=== PATIENT | female | born 1945 | race Caucasian/White ===

== ENCOUNTER 2020-09-13 05:45 | Inpatient (IN) | payer MEDICARE, SELFPAY ==
[2020-09-13 05:51] VITALS: BP 125/80; BP 175/91; PULSE 107; PULSE 97; RESP 16; TEMP 37.4; O2SAT 95; O2SAT 97; BMI 29.9
[2020-09-13 06:20] VITALS: O2SAT 95
--- NOTE | 2020-09-13 06:46 | XR_ITS ---
EXAMINATION: XR CHEST CLINICAL INFORMATION: SOB.] Positive COMPARISON: None TECHNIQUE: Frontal view of the chest was obtained. FINDINGS: The lungs are well-expanded with patchy opacity seen in the left lung base retrocardiac area question infiltrate versus atelectasis. Rest of lungs are clear. Heart size and pulmonary vascularity is normal. No gross bony abnormality seen. XR/XR chest 1V IMPRESSION: Patchy opacity left lung base retrocardiac area question infiltrate versus atelectasis.
--- NOTE | 2020-09-13 06:46 | ECG_ITS ---
Test Reason : SHORTNESS OF BREATH Blood Pressure : / mmHG Vent. Rate : 095 BPM Atrial Rate : 058 BPM P-R Int : 000 ms QRS Dur : 074 ms QT Int : 354 ms P-R-T Axes : 000 089 008 degrees QTc Int : 444 ms Atrial fibrillation Nonspecific T wave abnormality Abnormal ECG No previous ECGs available Referred By: James Hameed Electronically Signed By:Tyler Williamson
[2020-09-13] MEDS: 0.9 % Sodium Chloride 1,000 ML 999 ML IVCONT (06:55)
[2020-09-13] MEDS: Morphine Sulfate 4 MG/ML CARTRIDGE IVPUSH (06:55)
[2020-09-13] MEDS: ondansetron HCL 4 MG/2 ML VIAL IVPUSH (06:56)
--- NOTE | 2020-09-13 06:59 | ED_ITS ---
HPI - General Adult General Chief complaint: Upper Respiratory Symptoms Stated complaint: COVID POSITIVE SOB Time Seen by Provider: 09/13/20 06:46 Source: patient History of Present Illness HPI narrative: This is a 74 years old of female brought in by ambulance because of shortness of breath, diarrhea, upper abdominal pain. She was then use the covid positive 8 days ago she has history of COPD, she was on the hypoxic by [facility] with an O2 sat of 80 89% is usually she is not on oxygen. Onset (ago): day(s) (3) Radiation: non-radiation Severity: moderate Severity scale (1-10): 8 Relieving factors: none Exacerbating factors: none Associated symptoms: cough, fever/chills, loss of appetite and malaise Treatments prior to arrival: none Related Data Home Medications Medication Instructions Recorded Confirmed apixaban [Eliquis] 1 tab PO BID 09/13/20 09/13/20 atorvastatin 1 tab PO DAILY 09/13/20 09/13/20 ezetimibe 1 tab PO DAILY 09/13/20 09/13/20 furosemide 1 tab PO DAILY 09/13/20 09/13/20 leflunomide 1 tab PO DAILY 09/13/20 09/13/20 metoprolol succinate 1 tab PO DAILY 09/13/20 09/13/20 omeprazole 1 cap PO DAILY 09/13/20 09/13/20 sertraline 1 tab PO DAILY 09/13/20 09/13/20 Allergies Allergy/AdvReac Type Severity Reaction Status Date / Time No Known Allergies Allergy Verified 09/13/20 06:33 Review of Systems Review of Systems: Yes all other systems are reviewed and are negative Respiratory: Respiratory: Reports as per HPI and Reports no additional respiratory complaints Gastrointestinal: Gastrointestinal: Reports abdominal pain, Reports diarrhea, Reports loose stools and Reports nausea Genitourinary: Genitourinary: Reports no additional female genitourinary complaints Neurologic: Reports system reviewed and no additional complaints, except as documented PMF Past Medical History Medical History A-fib COPD (chronic obstructive pulmonary disease) HTN (hypertension) Social History Social History Alcohol intake: never Smoking Status: Never smoker Use of substances other than those prescribed or required for medical reasons: No Advance Directives: No Advance Directives Information Provided: No Physical Exam Vital Signs: Vital Signs: Last Vital Signs Temp 99.4 F 09/13/20 05:51 Pulse 85 09/13/20 12:48 Resp 16 09/13/20 12:48 BP 134/58 L 09/13/20 12:48 Pulse Ox 95 09/13/20 12:48 Body Mass Index 29.9 Const: General: cooperative and no acute distress Orientation/consciousness: oriented to person, oriented to place and oriented to time HENMT: Head: Yes normal to inspection Eyes: General: appearance normal, both eyes and all related structures Neck: Neck: Yes normal visual inspection, Yes full ROM and Yes no lymphade nopathy Chest: Chest palpation & inspection: normal inspection of the chest and normal palpation of entire chest wall Resp: Effort & Inspection: decreased respiratory effort Cardio: Rate: regular rate Rhythm: regular rhythm GI: Inspection: Yes normal to inspection Palpation (GI): Soft to palpation, nontender, no guarding and not rigid Skin: General skin exam: no rashes or lesions noted Neuro: General: oriented to person, oriented to place and oriented to time Medical Decision Making Lab Data Result diagrams: 09/13/20 07:44 09/13/20 07:44 Labs: Lab Results 09/13/20 09/13/20 09/13/20 Range/Units 07:44 07:44 07:44 WBC 6.6 (4.8-10.8) X10*3/uL RBC 4.69 (4.20-5.50) X10*6/uL Hgb 13.6 (12.0-16.0) g/dl Hct 42.5 (37-47) % MCV 90.6 (80-98) fL MCH 29.0 (27.0-33.0) pg MCHC 32.0 (31.0-35.0) g/dl RDW 14.2 (11.0-16.0) % Plt Count 144 L (160-400) X10*3/uL MPV 12.3 (9.4-12.3) fL Immature Gran % (Auto) 0.3 (0.0-0.4) % Neut % (Auto) 64.8 (45-73) % Lymph % (Auto) 20.5 (20-40) % [place] % (Auto) 13.0 H (2-11) % Eos % (Auto) 1.1 (0-4) % Baso % (Auto) 0.3 (0-2) % Lymph # (Auto) 1.3 (1.2-4.9) X10*3/uL [place] # (Auto) 0.9 (0.1-1.2) X10*3/uL Eos # (Auto) 0.1 (0.0-0.4) X10*3/uL Baso # (Auto) 0.0 (0.0-0.2) X10*3/uL Abs Immat Gran (auto) 0.02 (0.00-0.03) X10*3/uL Absolute Neuts (auto) 4.3 (2.0-8.3) X10*3/uL Absolute Nucleated RBC 0.000 (0.0-0.012) X10*3/uL Nucleated RBC % (auto) 0.0 (0.0-0.2) /100WBC PT 20.4 H (10.8-13.0) SEC INR 1.7 H (0.9-1.1) Sodium 137 (135-145) mmol/L Potassium 3.7 (3.3-5.1) mmol/l Chloride 103 (96-108) mmol/L Carbon Dioxide 27 (22-29) mmol/L Anion Gap 11 L (12-20) BUN 16 (9-16) mg/dL Creatinine 0.81 (0.5-1.4) mg/dL Estim Creat Clear Calc 68.9 Estimated GFR > 60 Random Glucose 113 (60-115) mg/dL Calcium 7.6 L (8.4-10.2) mg/dL Ferritin (10-250) ng/mL Total Bilirubin 0.7 (0.0-1.0) mg/dL AST 31 (5-31) U/L ALT 21 (0-31) U/L Alkaline Phosphatase 56 (39-117) U/L Lactate Dehydrogenase (122-220) U/L Total Protein 5.9 L (6.5-8.0) g/dL Albumin 3.6 (3.5-5.0) g/dL Lipase (8-78) U/L Procalcitonin ng/mL COVID-19 (JOSLYN) (Negative) COVID-19 Clin Com 09/13/20 09/13/20 09/13/20 Range/Units 07:44 07:44 07:44 WBC (4.8-10.8) X10*3/uL RBC (4.20-5.50) X10*6/uL Hgb (12.0-16.0) g/dl Hct (37-47) % MCV (80-98) fL MCH (27.0-33.0) pg MCHC (31.0-35.0) g/dl RDW (11.0-16.0) % Plt Count (160-400) X10*3/uL MPV (9.4-12.3) fL Immature Gran % (Auto) (0.0-0.4) % Neut % (Auto) (45-73) % Lymph % (Auto) (20-40) % [place] % (Auto) (2-11) % Eos % (Auto) (0-4) % Baso % (Auto) (0-2) % Lymph # (Auto) (1.2-4.9) X10*3/uL [place] # (Auto) (0.1-1.2) X10*3/uL Eos # (Auto) (0.0-0.4) X10*3/uL Baso # (Auto) (0.0-0.2) X10*3/uL Abs Immat Gran (auto) (0.00-0.03) X10*3/uL Absolute Neuts (auto) (2.0-8.3) X10*3/uL Absolute Nucleated RBC (0.0-0.012) X10*3/uL Nucleated RBC % (auto) (0.0-0.2) /100WBC PT (10.8-13.0) SEC INR (0.9-1.1) Sodium (135-145) mmol/L Potassium (3.3-5.1) mmol/l Chloride (96-108) mmol/L Carbon Dioxide (22-29) mmol/L Anion Gap (12-20) BUN (9-16) mg/dL Creatinine (0.5-1.4) mg/dL Estim Creat Clear Calc Estimated GFR Random Glucose (60-115) mg/dL Calcium (8.4-10.2) mg/dL Ferritin 428 H (10-250) ng/mL Total Bilirubin (0.0-1.0) mg/dL AST (5-31) U/L ALT (0-31) U/L Alkaline Phosphatase (39-117) U/L Lactate Dehydrogenase 292 H (122-220) U/L Total Protein (6.5-8.0) g/dL Albumin (3.5-5.0) g/dL Lipase 28 (8-78) U/L Procalcitonin 0.09 ng/mL COVID-19 (JOSLYN) (Negative) COVID-19 Clin Com 09/13/20 Range/Units 12:50 WBC (4.8-10.8) X10*3/uL RBC (4.20-5.50) X10*6/uL Hgb (12.0-16.0) g/dl Hct (37-47) % MCV (80-98) fL MCH (27.0-33.0) pg MCHC (31.0-35.0) g/dl RDW (11.0-16.0) % Plt Count (160-400) X10*3/uL MPV (9.4-12.3) fL Immature Gran % (Auto) (0.0-0.4) % Neut % (Auto) (45-73) % Lymph % (Auto) (20-40) % [place] % (Auto) (2-11) % Eos % (Auto) (0-4) % Baso % (Auto) (0-2) % Lymph # (Auto) (1.2-4.9) X10*3/uL [place] # (Auto) (0.1-1.2) X10*3/uL Eos # (Auto) (0.0-0.4) X10*3/uL Baso # (Auto) (0.0-0.2) X10*3/uL Abs Immat Gran (auto) (0.00-0.03) X10*3/uL Absolute Neuts (auto) (2.0-8.3) X10*3/uL Absolute Nucleated RBC (0.0-0.012) X10*3/uL Nucleated RBC % (auto) (0.0-0.2) /100WBC PT (10.8-13.0) SEC INR (0.9-1.1) Sodium (135-145) mmol/L Potassium (3.3-5.1) mmol/l Chloride (96-108) mmol/L Carbon Dioxide (22-29) mmol/L Anion Gap (12-20) BUN (9-16) mg/dL Creatinine (0.5-1.4) mg/dL Estim Creat Clear Calc Estimated GFR Random Glucose (60-115) mg/dL Calcium (8.4-10.2) mg/dL Ferritin (10-250) ng/mL Total Bilirubin (0.0-1.0) mg/dL AST (5-31) U/L ALT (0-31) U/L Alkaline Phosphatase (39-117) U/L Lactate Dehydrogenase (122-220) U/L Total Protein (6.5-8.0) g/dL Albumin (3.5-5.0) g/dL Lipase (8-78) U/L Procalcitonin ng/mL COVID-19 (JOSLYN) Positive A (Negative) COVID-19 Clin Com See Note Imaging Data Chest x-ray: Radiologist's impression: FINDINGS: The lungs are well-expanded with patchy opacity seen in the left lung base retrocardiac area question infiltrate versus atelectasis. Rest of lungs are clear. Heart size and pulmonary vascularity is normal. No gross bony abnormality seen. XR/XR chest 1V IMPRESSION: Patchy opacity left lung base retrocardiac area question infiltrate versus atelectasis. Discharge Plan Discharge Clinical Impression: Pneumonia, Hypoxia Prescriptions: No Action atorvastatin 40 mg tablet 1 tab PO DAILY RF: 0 leflunomide 20 mg tablet 1 tab PO DAILY RF: 0 omeprazole 20 mg capsule,delayed release(DR/EC) 1 cap PO DAILY RF: 0 furosemide 20 mg tablet 1 tab PO DAILY RF: 0 metoprolol succinate 25 mg tablet extended release 24 hr 1 tab PO DAILY RF: 0 sertraline 50 mg tablet 1 tab PO DAILY RF: 0 ezetimibe 10 mg tablet 1 tab PO DAILY RF: 0 Eliquis 5 mg tablet 1 tab PO BID RF: 0
[2020-09-13 07:14] VITALS: BP 142/42; PULSE 91; RESP 13
[2020-09-13 07:53] LABS: Basophils Percent Auto 0.3 % (0-2); Eosinophils Absolute Auto 0.1 X10*3/uL (0.0-0.4); Eosinophils Percent Auto 1.1 % (0-4); Hematocrit 42.5 % (37-47); Hemoglobin 13.6 g/dl (12.0-16.0); Imm Gran Abs Auto 0.02 X10*3/uL (0.00-0.03); Imm Gran Pct Auto 0.3 % (0.0-0.4); Lymphocytes Absolute Auto 1.3 X10*3/uL (1.2-4.9); Lymphocytes Percent Auto 20.5 % (20-40); Mean Corpuscular Volume 90.6 fL (80-98); Mean Platelet Volume 12.3 fL (9.4-12.3); Monocytes Absolute Auto 0.9 X10*3/uL (0.1-1.2); Neutrophils Absolute Auto 4.3 X10*3/uL (2.0-8.3); Neutrophils Percent Auto 64.8 % (45-73); Platelet Count 144 X10*3/uL (160-400); Red Blood Count 4.69 X10*6/uL (4.20-5.50); Red Cell Distribution Width 14.2 % (11.0-16.0); White Blood Count 6.6 X10*3/uL (4.8-10.8)
[2020-09-13 07:54] LABS: MANUAL DIFF FLAG NO
[2020-09-13 07:57] LABS: INTERNATIONAL NORM RATIO 1.7 (0.9-1.1); Prothrombin Time 20.4 SEC (10.8-13.0)
[2020-09-13 08:28] LABS: Alanine Aminotransferase 21 U/L (0-31); Albumin Level 3.6 g/dL (3.5-5.0); Alkaline Phosphatase 56 U/L (39-117); Anion Gap 11 (12-20); Aspartate Amino Transferase 31 U/L (5-31); Bilirubin Total 0.7 mg/dL (0.0-1.0); Blood Urea Nitrogen 16 mg/dL (9-16); Calcium 7.6 mg/dL (8.4-10.2); Carbon Dioxide 27 mmol/L (22-29); Chloride 103 mmol/L (96-108); Creatinine Clr Calc Pharmacy 68.9; Estimated Glomerular Filt Rate > 60; Glucose Random 113 mg/dL (60-115); Lipase 28 U/L (8-78); Potassium 3.7 mmol/l (3.3-5.1); Sodium 137 mmol/L (135-145); Total Protein 5.9 g/dL (6.5-8.0)
[2020-09-13] MEDS: cefTRIAXone sodium 1 GM in 0.9 % Sodium Chloride 50 ML IV (08:45)
[2020-09-13] MEDS: Doxycycline Hyclate 100 MG in 0.9 % Sodium Chloride 250 ML 166.67 MG IV (09:52)
[2020-09-13] MEDS: dexAMETHasone sod phosphate 4 MG/ML VIAL 6 MG IVPUSH (10:51)
[2020-09-13] MEDS: Acetaminophen 325 MG TABLET 650 MG PO (12:01)
[2020-09-13 12:48] VITALS: BP 134/58; PULSE 85; RESP 16; O2SAT 95
[2020-09-13 12:59] LABS: Lactate Dehydrogenase 292 U/L (122-220)
[2020-09-13 13:11] LABS: Procalcitonin 0.09 ng/mL
[2020-09-13 13:12] LABS: Ferritin 428 ng/mL (10-250)
[2020-09-13 13:20] LABS: COVID-19 Test Positive (Negative); IDNOW Serial# 9DD0AD1C
[2020-09-13] MEDS: Loperamide HCl 2 MG CAPSULE PO (15:03)
--- NOTE | 2020-09-13 18:10 | HP_ITS ---
DATE OF SERVICE: 09/13/2020 PRIMARY CARE PROVIDER: Peyman Vogt MD CHIEF COMPLAINT: Shortness of breath. HISTORY OF PRESENT ILLNESS: A 74-year-old woman presenting with complaints of worsening shortness of breath. She reports that she was diagnosed with COVID-19 on September 04. She had felt unwell with headache and diarrhea on . She had body aches, abdominal pain, and chills. Her was also diagnosed with COVID-19 and she had been quarantining. However, at 4:30 this morning, she woke up with shortness of breath. She does have a history of COPD and felt her chest tight. She decided to come to the ER to be evaluated. She denied any cough or sputum production. In the ER, all her labs are within acceptable limits. Chest x-ray showed patchy opacity to the left lung base. She had no fever initially. She was given Zofran, morphine, doxycycline, ceftriaxone in the ER. She will be admitted for further management and treatment of acute hypoxic respiratory failure secondary to COVID-19. PAST MEDICAL HISTORY: 1. TIA. 2. COPD, non-oxygen dependent. 3. Atrial fibrillation, on Eliquis. 4. Diabetes mellitus. 5. Hypertension. 6. Hyperlipidemia. PAST SURGICAL HISTORY: None. FAMILY HISTORY: Mother had pancreatic cancer. Father had coronary artery disease and CHF. SOCIAL HISTORY: Lives with her who has dementia. 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 She denies any alcohol, tobacco, or illicit drug use. ALLERGIES: NO KNOWN ALLERGIES. MEDICATIONS: 1. Apixaban 1 tab p.o. b.i.d. 2. Atorvastatin 1 tab p.o. daily. 3. Zetia 1 tab p.o. daily. 4. Furosemide 1 tab p.o. daily. 5. Leflunomide 1 tab p.o. daily. 6. Metoprolol succinate 1 tab p.o. daily. 7. Omeprazole 1 tab p.o. daily. 8. Sertraline 1 tab p.o. daily. REVIEW OF SYSTEMS: CONSTITUTIONAL: Denies any recent fever. Reports chills. No decrease in appetite. RESPIRATORY: See HPI. CARDIOVASCULAR: Denies any chest pain, orthopnea, PND, or edema. GASTROINTESTINAL: See HPI. GENITOURINARY: Denies dysuria, frequency, or hematuria. MUSCULOSKELETAL: Denies any joint pain or swelling. NEUROPSYCH: Denies any weakness or seizures. All other systems are reviewed and are negative. PHYSICAL EXAMINATION: CONSTITUTIONAL: Resting in bed, appearing in no acute distress. VITAL SIGNS: 142/42, 91, 13, 93% on 2 L. SKIN: Intact without rash or open sores. HEENT: Head is normocephalic, atraumatic. Eyes, pupils are PERRLA. Sclerae anicteric. Mouth and throat: Mucous membranes are intact and moist. NECK: Supple. No lymphadenopathy. No JVD noted. CHEST: Normal expansion. HEART: Regular rhythm. ABDOMEN: Nontender. NEUROLOGIC: Alert, oriented x3. No focal deficits noted. LABORATORY DATA: WBC 6.6, hemoglobin 13.6, hematocrit 42.5, platelets 144. Sodium is 137, potassium 3.7, chloride is 103, bicarb is 27, BUN is 16, creatinine 0.81, total bilirubin 0.7, AST is 31, ALT is 21. ASSESSMENT AND PLAN: 74-year-old woman who is being admitted with acute hypoxic respiratory failure secondary to COVID pneumonia. 1. Acute hypoxic respiratory failure secondary to COVID-19. We will treat with dexamethasone, albuterol, supplemental oxygen. ID consultation. No need for remdesivir at this time. 2. Viral pneumonia. We will treat with Rocephin and azithromycin, ID to follow. 3. History of atrial fibrillation. Stable heart rate. Continue Eliquis and metoprolol. 4. Hyperlipidemia. Continue statin. 5. Hypertension. Continue furosemide. 6. Gastroesophageal reflux disease. Continue PPI. 7. Depression. Continue sertraline. 8. Deep vein thrombosis prophylaxis with Eliquis. 9. Case discussed with Dr. Myrick. DNR at this time. 10. Full code. SURI Savage MD JR/JODY / [id number]
--- NOTE | 2020-09-13 18:51 | P.EN_ITS ---
Event Note Date of Service: 09/13/20 Event Note: Patient seen and examined. Case discussed with Jaclyn Vallecillo NP. Agree with her history and physical. In brief, 74-year-old female with COPD and AFib who reports that she went dinner with friends on August 28. She reports that 1 of the friends tested pos itive a few days later and she had symptoms so she tested on September 04 and this result came back positive. She reports feeling unwell since then but not sick enough for her to come to the hospital. She reports that yesterday she just had a severe headache, diarrhea, difficulty breathing and so she presented to the hospital. She does report that she has a pulse ox at home and normally prior to being infected with COVID she runs around 95 but over the last several days this was dropping to the high 80s. IV Decadron, no benefit of remdesivir and plasma given the timing of her course. Will empirically cover with ceftriaxone and azithromycin for postviral bacterial pneumonia. Oxygen saturation to maintain level greater than 90. Continue her Eliquis. Remainder per H&P
--- NOTE | 2020-09-13 19:46 | PC.NURSE ---
Report given to floor and patient ready for transport
[2020-09-13 20:00] VITALS: BP 155/68; PULSE 73; RESP 20; TEMP 36.6; O2SAT 95
[2020-09-13 21:05] LABS: Glucose, Whole Blood 140 mg/dL (60-115)
[2020-09-13] MEDS: Apixaban 5 MG TABLET PO (21:41)
[2020-09-13] MEDS: Melatonin 3 MG TABLET 21 MG PO (22:02)
[2020-09-14] VITALS (7 sets, daily range): BP systolic 132–164; BP diastolic 60–91; PULSE 63–81; RESP 17–18; TEMP 36.5–37.1; O2SAT 91–97
[2020-09-14] MEDS: 0.9 % Sodium Chloride Flush 3 ML SYRINGE IVFLUSH ×3 (00:13→15:47)
[2020-09-14 06:34] LABS: MANUAL DIFF FLAG NO
[2020-09-14 06:49] LABS: Basophils Percent Auto 0.2 % (0-2); Hematocrit 40.9 % (37-47); Hemoglobin 12.9 g/dl (12.0-16.0); Imm Gran Abs Auto 0.02 X10*3/uL (0.00-0.03); Imm Gran Pct Auto 0.4 % (0.0-0.4); Lymphocytes Percent Auto 37.8 % (20-40); Mean Corpuscular HGB Conc 31.5 g/dl (31.0-35.0); Mean Corpuscular Hemoglobin 28.4 pg (27.0-33.0); Mean Corpuscular Volume 90.1 fL (80-98); Mean Platelet Volume 12.9 fL (9.4-12.3); Monocytes Absolute Auto 0.9 X10*3/uL (0.1-1.2); Monocytes Percent Auto 18.2 % (2-11); Neutrophils Absolute Auto 2.2 X10*3/uL (2.0-8.3); Neutrophils Percent Auto 43.4 % (45-73); Platelet Count 174 X10*3/uL (160-400); Red Blood Count 4.54 X10*6/uL (4.20-5.50); Red Cell Distribution Width 14.2 % (11.0-16.0); White Blood Count 5.2 X10*3/uL (4.8-10.8)
[2020-09-14 07:23] LABS: Anion Gap 15 (12-20); Blood Urea Nitrogen 16 mg/dL (9-16); Calcium 8.1 mg/dL (8.4-10.2); Carbon Dioxide 25 mmol/L (22-29); Chloride 106 mmol/L (96-108); Creatinine Clr Calc Pharmacy 70.6; Estimated Glomerular Filt Rate > 60; Glucose Random 113 mg/dL (60-115); Potassium 4.8 mmol/l (3.3-5.1); Sodium 141 mmol/L (135-145)
[2020-09-14] MEDS: Ezetimibe 10 MG TABLET PO (08:28)
[2020-09-14] MEDS: Omeprazole 20 MG CAPSULE.DR PO (08:28)
[2020-09-14] MEDS: Metoprolol Succinate ER 25 MG TAB.ER.24H PO (08:28)
[2020-09-14] MEDS: Atorvastatin Calcium 40 MG TABLET PO (08:28)
[2020-09-14] MEDS: dexAMETHasone sod phosphate 4 MG/ML VIAL 6 MG IVPUSH (08:28)
[2020-09-14] MEDS: Furosemide 20 MG TABLET PO (08:29)
[2020-09-14] MEDS: Sertraline HCL 50 MG TABLET PO (08:29)
[2020-09-14] MEDS: Apixaban 5 MG TABLET PO ×2 (08:29→20:21)
[2020-09-14] MEDS: Leflunomide 10 MG TABLET 20 MG PO (08:29)
[2020-09-14] MEDS: Acetaminophen 325 MG TABLET 650 MG PO ×2 (09:37→20:25)
--- NOTE | 2020-09-14 12:09 | MHC.CM.PN ---
IMM 09/14/2020 Female 74 DX Covid+. She lives with . He has Dementia and Covid as well. Family is going to have him evaluated in ER today. She is independent with all functional mobility. DP home no services, Family will provide transportation. A HCP was documented. A copy was placed on pts chart. Copies were also provided to the patient. CM will follow to assess for a change in DC needs.
--- NOTE | 2020-09-14 15:18 | P.PNIM_ITS ---
Subjective Subjective Date of Service: 09/14/20 Interval History: Patient being followed for acute hypoxic respiratory failure, patient complaining of loose stools soon after eating, therefore nervous to eat food, patient also complaining of frontal headache otherwise denies shortness of breath, denies fever chills. Review of Systems General no dizziness no fever chills. CVS no chest pain, no palpitation. Respiratory no cough no sputum production no respiratory distress. Gastrointestinal no nausea no vomiting, no abdominal pain, complaining of diarrhea after eating Physical Exam Vital Signs: Vital Signs: Last Vital Signs Temp 98.4 F 09/14/20 12:00 Pulse 72 09/14/20 12:00 Resp 17 09/14/20 12:00 BP 138/91 H 09/14/20 12:00 Pulse Ox 92 09/14/20 12:00 Body Mass Index 29.9 Const: Other: General patient resting comfortably in no acute distress. Neck is supple no JVD. CVS regular rate rhythm, Respiratory lungs coarse breath sound at bilateral bases, dry crackles left base, no respiratory distress, no wheeze Gastrointestinal abdomen soft, nontender, bowel sounds audible, no no guarding , no rigidity. Extremities no clubbing cyanosis or edema. Neuro nonfocal Skin no rash Objective Data Current Medications Generic Name Dose Route Start Last Admin Trade Name Freq PRN Reason Stop Dose Admin Acetaminophen 650 mg 09/13/20 10:25 09/14/20 09:37 Acetaminophen 325 Mg Tablet PO 650 mg Q6H PRN Administration Pain, Mild (Pain Scale 1-3) Albuterol Sulfate 2 puff 09/13/20 10:40 Albuterol Sulfate 90 Mcg 8 Gm Inhaler INHALE RQ4H PRN Wheezing Apixaban 5 mg 09/13/20 21:00 09/14/20 08:29 Apixaban 5 Mg Tablet PO 5 mg BID TIMBO Administration Atorvastatin Calcium 40 mg 09/14/20 09:00 09/14/20 08:28 Atorvastatin Calcium 40 Mg Tablet PO 40 mg DAILY TIMBO Administration Dexamethasone Sodium Phosphate 6 mg 09/13/20 10:45 09/14/20 08:28 Dexamethasone Sod Phosphate 4 Mg/Ml Vial IVPUSH 6 mg DAILY TIMBO Administration Ezetimibe 10 mg 09/14/20 09:00 09/14/20 08:28 Ezetimibe 10 Mg Tablet PO 10 mg DAILY TIMBO Administration Furosemide 20 mg 09/14/20 09:00 09/14/20 08:29 Furosemide 20 Mg Tablet PO 20 mg DAILY TIMBO Administration Protocol Leflunomide 20 mg 09/14/20 09:00 09/14/20 08:29 Leflunomide 10 Mg Tablet PO 20 mg DAILY TIMBO Administration Metoprolol Succinate 25 mg 09/14/20 09:00 09/14/20 08:28 Metoprolol Succinate Er 25 Mg Tab.Er.24h PO 25 mg DAILY TIMBO Administration Protocol Omeprazole 20 mg 09/14/20 09:00 09/14/20 08:28 Omeprazole 20 Mg Capsule. PO 20 mg DAILY TIMBO Administration Ondansetron HCl 4 mg 09/13/20 10:25 Ondansetron Hcl 4 Mg/2 Ml Vial IVPUSH Q8H PRN Nausea and Vomiting Sertraline HCl 50 mg 09/14/20 09:00 09/14/20 08:29 Sertraline Hcl 50 Mg Tablet PO 50 mg DAILY TIMBO Administration Sodium Chloride 3 ml 09/13/20 16:00 09/14/20 08:28 0.9 % Sodium Chloride Flush 3 Ml Syringe IVFLUSH 3 ml QSHIFT TIMBO Administration Labs CBC & Chem 7: 09/14/20 05:43 09/14/20 05:43 Microbiology Microbiology Results: Microbiology 09/13/20 09:56 Blood - Venous Blood Culture - Preliminary No growth after 24 hours. 09/13/20 09:17 Blood - Venous Blood Culture - Preliminary No growth after 24 hours. Assessment and Plan (1) COVID-19 virus infection: Status: Acute (2) Pneumonia: Status: Acute (3) Hypoxia: Status: Acute Assessment and Plan: 74-year-old woman who is being admitted with acute hypoxic respiratory failure secondary to COVID pneumonia. 1. Acute hypoxic respiratory failure secondary to COVID-19 with possible bacteri a pneumonia. Patient denies shortness of breath no acute issues overnight clinically stable is still on 3 L of nasal cannula with finger oximetry 92%, continue iv dexamethasone day 2, continue albuterol, continue doxy Add incentive spirometry, recommended frequent change in position and proning, g radually wean oxygen Reassured patient that headache and diarrhea as part of COVID-19 infection. LDH 292 procalcitonin point overnight, ferritin 428, stable electrolytes and CBC. 3. History of atrial fibrillation. Stable heart rate. Continue Eliquis and metoprolol. 4. Hyperlipidemia. Continue statin. 5. Hypertension. Continue furosemide. 6. Gastroesophageal reflux disease. Continue PPI. 7. Depression. Continue sertraline. 8. Deep vein thrombosis prophylaxis with Eliquis. 9. Full code.
--- NOTE | 2020-09-14 15:35 | P.CNID_ITS ---
History of Present Illness Data of Consult Service Date: 09/14/20 Primary Care Provider: Peyman Vogt MD [facility] Reason for consult: COVID She presents to hospital with shortness of breath and fatigue She has been ill since 09/02 when she had weakness and fever She and her both tested positive for COVID They were playing cards with another couple 5 days before who had COVID Review of Systems Review of Systems: Yes all other systems are reviewed and are negative Neurologic: Reports system reviewed and no additional complaints, except as documented PMFSH Past Medical History Medical History A-fib COPD (chronic obstructive pulmonary disease) HTN (hypertension) Social History Social History Household Members: Spouse Housing: House Do you presently have visiting nurse or other home services: No Alcohol intake: never Smoking Status: Former smoker Smoked in Last 30 Days: No Use of substances other than those prescribed or required for medical reasons: No Currently Displaying Signs/Symptoms of Drug Intoxication Withdrawal: No Have you been hit, kicked, punched, or otherwise hurt by someone within the past year? If so, by whom?: No Do you feel safe in your current relationship?: Yes Is there a partner from a previous relationship who is making you feel unsafe now?: No Are you made to feel afraid or neglected: No Advance Directives: No Advance Directives Information Provided: No Do you have thoughts of harming others: None Do you have a plan to hurt others: No Plan Recently lost weight without trying: No service: No Current occupational status: retired [employer] Allergies Allergy/AdvReac Type Severity Reaction Status Date / Time No Known Allergies Allergy Verified 09/13/20 06:33 Home Medications Medication Instructions Recorded Confirmed Type apixaban [Eliquis] 1 tab PO BID 09/13/20 09/13/20 History atorvastatin 1 tab PO DAILY 09/13/20 09/13/20 History ezetimibe 1 tab PO DAILY 09/13/20 09/13/20 History furosemide 1 tab PO DAILY 09/13/20 09/13/20 History leflunomide 1 tab PO DAILY 09/13/20 09/13/20 History metoprolol succinate 1 tab PO DAILY 09/13/20 09/13/20 History omeprazole 1 cap PO DAILY 09/13/20 09/13/20 History sertraline 1 tab PO DAILY 09/13/20 09/13/20 History Physical Exam Vital Signs: Vital Signs: Last Vital Signs Temp 98.4 F 09/14/20 12:00 Pulse 72 09/14/20 12:00 Resp 17 09/14/20 12:00 BP 138/91 H 09/14/20 12:00 Pulse Ox 92 09/14/20 12:00 Body Mass Index 29.9 Const: General: cooperative Orientation/consciousness: oriented to person, oriented to place and oriented to time HENMT: Head: Yes normal to inspection Mouth: oropharynx normal Eyes: General: appearance normal, both eyes and all related structures Resp: Effort & Inspection: normal respiratory effort Cardio: Rate: regular rate Rhythm: regular rhythm GI: Palpation (GI): Soft to palpation and nontender Skin: General skin exam: no rashes or lesions noted Neuro: General: oriented to person, oriented to place and oriented to time Extrem: General: Yes normal to inspection Assessment and Plan (1) COVID-19 virus infection: Problem details: COVID, she has been ill 11 days She has no signs of bacterial infection probably hypoxia due to COVID Status: Acute Would give supportive care with oxygen Can give steroids No Remdesivir at this stage (2) Pneumonia: Status: Acute Results Labs CBC & Chem 7: 09/14/20 05:43 09/14/20 05:43 Labs: Short CBC 09/14/20 Range/Units 05:43 WBC 5.2 (4.8-10.8) X10*3/uL Hgb 12.9 (12.0-16.0) g/dl Hct 40.9 (37-47) % Plt Count 174 (160-400) X10*3/uL BMP 09/14/20 05:43 Sodium 141 Potassium 4.8 D Chloride 106 Carbon Dioxide 25 BUN 16 Creatinine 0.79 Calcium 8.1 L D Microbiology Microbiology Results: Microbiology 09/13/20 09:56 Blood - Venous Blood Culture - Preliminary No growth after 24 hours. 09/13/20 09:17 Blood - Venous Blood Culture - Preliminary No growth after 24 hours.
[2020-09-14 16:04] LABS: Glucose, Whole Blood 146 mg/dL (60-115)
[2020-09-14] MEDS: Melatonin 3 MG TABLET 21 MG PO (21:04)
[2020-09-15] VITALS (7 sets, daily range): BP systolic 128–153; BP diastolic 61–76; PULSE 69–88; RESP 18–20; TEMP 36.8–37.2; O2SAT 90–98
[2020-09-15] MEDS: 0.9 % Sodium Chloride Flush 3 ML SYRINGE IVFLUSH ×3 (00:10→17:41)
[2020-09-15] MEDS: Metoprolol Succinate ER 25 MG TAB.ER.24H PO (08:51)
[2020-09-15] MEDS: Furosemide 20 MG TABLET PO (08:51)
[2020-09-15] MEDS: Omeprazole 20 MG CAPSULE.DR PO (08:51)
[2020-09-15] MEDS: Leflunomide 10 MG TABLET 20 MG PO (08:51)
[2020-09-15] MEDS: Apixaban 5 MG TABLET PO ×2 (08:52→21:40)
[2020-09-15] MEDS: Sertraline HCL 50 MG TABLET PO (08:52)
[2020-09-15] MEDS: dexAMETHasone sod phosphate 4 MG/ML VIAL 6 MG IVPUSH (08:52)
[2020-09-15] MEDS: Atorvastatin Calcium 40 MG TABLET PO (08:52)
[2020-09-15] MEDS: Ezetimibe 10 MG TABLET PO (08:54)
[2020-09-15] MEDS: Acetaminophen 325 MG TABLET 650 MG PO ×2 (10:26→21:47)
[2020-09-15] MEDS: oxyCODONE HCl Immed Release 5 MG TABLET PO ×2 (10:27→21:46)
--- NOTE | 2020-09-15 14:26 | MHC.CM.PN ---
Patient is on IV Dexamethasone and 5 liters O2 r/t COVID +. BC negative x 24 hrs. Discharge plan is home no services, family will provide transport. CM will continue to follow for discharge needs.
--- NOTE | 2020-09-15 18:00 | HO.PM.IMPN ---
Subjective Subjective Date of Service: 09/15/20 Interval History: c/o frontal SANTANA dyspnea improved, O2 weaned down to 1L via NC diarrhea improving, stools more formed Physical Exam Vital Signs: Vital Signs: Last Vital Signs Temp 98.5 F 09/15/20 15:36 Pulse 88 09/15/20 15:36 Resp 18 09/15/20 15:36 BP 128/61 09/15/20 15:36 Pulse Ox 90 L 09/15/20 15:36 Body Mass Index 29.9 Gen: in no acute distress HEENT: sclera anicteric, moist mucus membranes Neck: supple Lungs: no respiratory distress, auscultation deferred due to COVID-19 Heart: normal peripheral pulses Abd: soft, non-tender, non-distended Ext: no cyanosis, clubbing, or edema Skin: warm/well-perfused Neuro: alert and oriented x3, no focal findings Psych: appropriate affect Objective Data Current Medications Generic Name Dose Route Start Last Admin Trade Name Freq PRN Reason Stop Dose Admin Acetaminophen 650 mg 09/13/20 10:25 09/15/20 10:26 Acetaminophen 325 Mg Tablet PO 650 mg Q6H PRN Administration Pain, Mild (Pain Scale 1-3) Albuterol Sulfate 2 puff 09/13/20 10:40 Albuterol Sulfate 90 Mcg 8 Gm Inhaler INHALE RQ4H PRN Wheezing Apixaban 5 mg 09/13/20 21:00 09/15/20 08:52 Apixaban 5 Mg Tablet PO 5 mg BID TIMBO Administration Atorvastatin Calcium 40 mg 09/14/20 09:00 09/15/20 08:52 Atorvastatin Calcium 40 Mg Tablet PO 40 mg DAILY TIMBO Administration Dexamethasone Sodium Phosphate 6 mg 09/13/20 10:45 09/15/20 08:52 Dexamethasone Sod Phosphate 4 Mg/Ml Vial IVPUSH 6 mg DAILY TIMBO Administration Doxycycline Hyclate 100 mg 09/14/20 18:00 09/15/20 17:41 Doxycycline Hyclate 100 Mg Tablet PO 100 mg Q12H TIMBO Administration Ezetimibe 10 mg 09/14/20 09:00 09/15/20 08:54 Ezetimibe 10 Mg Tablet PO 10 mg DAILY TIMBO Administration Furosemide 20 mg 09/14/20 09:00 09/15/20 08:51 Furosemide 20 Mg Tablet PO 20 mg DAILY TIMBO Administration Protocol Leflunomide 20 mg 09/14/20 09:00 09/15/20 08:51 Leflunomide 10 Mg Tablet PO 20 mg DAILY TIMBO Administration Melatonin 21 mg 09/14/20 21:00 09/14/20 21:04 Melatonin 3 Mg Tablet PO 21 mg BEDTIME TIMBO Administration Metoprolol Succinate 25 mg 09/14/20 09:00 09/15/20 08:51 Metoprolol Succinate Er 25 Mg Tab.Er.24h PO 25 mg DAILY TIMBO Administration Protocol Omeprazole 20 mg 09/14/20 09:00 09/15/20 08:51 Omeprazole 20 Mg Capsule.Dr PO 20 mg DAILY TIMBO Administration Ondansetron HCl 4 mg 09/13/20 10:25 Ondansetron Hcl 4 Mg/2 Ml Vial IVPUSH Q8H PRN Nausea and Vomiting Oxycodone HCl 5 mg 09/15/20 10:14 09/15/20 10:27 Oxycodone Hcl Immed Release 5 Mg Tablet PO 5 mg Q6H PRN Administration Headache Sertraline HCl 50 mg 09/14/20 09:00 09/15/20 08:52 Sertraline Hcl 50 Mg Tablet PO 50 mg DAILY TIMBO Administration Sodium Chloride 3 ml 09/13/20 16:00 09/15/20 17:41 0.9 % Sodium Chloride Flush 3 Ml Syringe IVFLUSH 3 ml QSHIFT TIMBO Administration Labs CBC & Chem 7: 09/14/20 05:43 09/14/20 05:43 Microbiology Microbiology Results: Microbiology 09/13/20 09:56 Blood - Venous Blood Culture - Preliminary No growth after 48 hours. 09/13/20 09:17 Blood - Venous Blood Culture - Preliminary No growth after 48 hours. Assessment and Plan (1) COVID-19 virus infection: Status: Acute (2) Pneumonia: Status: Acute (3) Hypoxia: Status: Acute Assessment and Plan: hospital d#3 74yo with AF, HTN, RA diagnosed with COVID-19 infection 09/04/20, onset of symptoms 09/03/20 admitted for hypoxia # COVID-19 pneumonia - dexamethasone d#3/10 - question of bacterial pneumonia- on doxycycline d#3 but will d/c if PCT is low tomorrow - trend inflammatory markers # acute hypoxic respiratory failure - wean O2 as tolerated, encouraged awake proning # AF - continue apixaban, metoprolol # HTN - continue metoprolol, furosemide # HLD - continue statin + ezetimibe # RA - continue lefluonmide # GERD - continue PPI # depression - continue sertraline # VTE ppx - on apixaban
[2020-09-15] MEDS: Melatonin 3 MG TABLET 21 MG PO (21:40)
[2020-09-16] VITALS (7 sets, daily range): BP systolic 127–159; BP diastolic 64–80; PULSE 62–71; RESP 16–18; TEMP 36.1–36.8; O2SAT 90–98
[2020-09-16] MEDS: 0.9 % Sodium Chloride Flush 3 ML SYRINGE IVFLUSH ×3 (01:51→17:19)
[2020-09-16 06:44] LABS: MANUAL DIFF FLAG NO
[2020-09-16 06:55] LABS: Basophils Percent Auto 0.2 % (0-2); Eosinophils Percent Auto 0.1 % (0-4); Hematocrit 40.4 % (37-47); Imm Gran Abs Auto 0.05 X10*3/uL (0.00-0.03); Imm Gran Pct Auto 0.6 % (0.0-0.4); Lymphocytes Absolute Auto 2.3 X10*3/uL (1.2-4.9); Lymphocytes Percent Auto 25.6 % (20-40); Mean Corpuscular HGB Conc 32.2 g/dl (31.0-35.0); Mean Corpuscular Volume 90.2 fL (80-98); Mean Platelet Volume 12.8 fL (9.4-12.3); Monocytes Absolute Auto 1.2 X10*3/uL (0.1-1.2); Neutrophils Absolute Auto 5.5 X10*3/uL (2.0-8.3); Neutrophils Percent Auto 60.5 % (45-73); Platelet Count 196 X10*3/uL (160-400); Red Blood Count 4.48 X10*6/uL (4.20-5.50); Red Cell Distribution Width 14.3 % (11.0-16.0)
[2020-09-16 07:01] LABS: D Dimer 261 NG/ML
[2020-09-16 07:40] LABS: Alanine Aminotransferase 21 U/L (0-31); Albumin Level 3.3 g/dL (3.5-5.0); Alkaline Phosphatase 51 U/L (39-117); Anion Gap 15 (12-20); Aspartate Amino Transferase 25 U/L (5-31); Bilirubin Total 0.7 mg/dL (0.0-1.0); Blood Urea Nitrogen 24 mg/dL (9-16); C Reactive Protein 1.16 mg/dL (< or = 0.50); Calcium 8.4 mg/dL (8.4-10.2); Carbon Dioxide 27 mmol/L (22-29); Chloride 106 mmol/L (96-108); Creatinine Clr Calc Pharmacy 70.6; Estimated Glomerular Filt Rate > 60; Glucose Random 103 mg/dL (60-115); Lactate Dehydrogenase 311 U/L (122-220); Potassium 4.7 mmol/l (3.3-5.1); Sodium 143 mmol/L (135-145); Total Protein 5.8 g/dL (6.5-8.0)
[2020-09-16 09:10] LABS: Procalcitonin 0.03 ng/mL
[2020-09-16] MEDS: Omeprazole 20 MG CAPSULE.DR PO (09:15)
[2020-09-16] MEDS: Sertraline HCL 50 MG TABLET PO (09:15)
[2020-09-16] MEDS: Leflunomide 10 MG TABLET 20 MG PO (09:15)
[2020-09-16] MEDS: Ezetimibe 10 MG TABLET PO (09:16)
[2020-09-16] MEDS: dexAMETHasone sod phosphate 4 MG/ML VIAL 6 MG IVPUSH (09:16)
[2020-09-16] MEDS: Metoprolol Succinate ER 25 MG TAB.ER.24H PO (09:16)
[2020-09-16] MEDS: Atorvastatin Calcium 40 MG TABLET PO (09:16)
[2020-09-16] MEDS: Furosemide 20 MG TABLET PO (09:16)
[2020-09-16] MEDS: Apixaban 5 MG TABLET PO ×2 (09:16→22:24)
[2020-09-16 09:19] LABS: Ferritin 424 ng/mL (10-250)
[2020-09-16] MEDS: oxyCODONE HCl Immed Release 5 MG TABLET PO ×2 (09:35→17:25)
[2020-09-16] MEDS: Acetaminophen 325 MG TABLET 650 MG PO ×2 (09:35→17:17)
--- NOTE | 2020-09-16 13:34 | HO.PM.IMPN ---
Subjective Subjective Date of Service: 09/16/20 Interval History: SANTANA improved Still requiring 1-2L O2 via NC Very tired No chest pain Physical Exam Vital Signs: Vital Signs: Last Vital Signs Temp 98.3 F 09/16/20 10:59 Pulse 70 09/16/20 10:59 Resp 18 09/16/20 10:59 BP 147/71 H 09/16/20 10:59 Pulse Ox 94 09/16/20 10:59 Body Mass Index 29.9 Gen: in no acute distress HEENT: sclera anicteric, moist mucus membranes Neck: supple Lungs: no respiratory distress, auscultation deferred due to COVID-19 Heart: normal peripheral pulses Abd: soft, non-tender, non-distended Ext: no cyanosis, clubbing, or edema Skin: warm/well-perfused Neuro: alert and oriented x3, no focal findings Psych: appropriate affect Objective Data Current Medications Generic Name Dose Route Start Last Admin Trade Name Freq PRN Reason Stop Dose Admin Acetaminophen 650 mg 09/13/20 10:25 09/16/20 09:35 Acetaminophen 325 Mg Tablet PO 650 mg Q6H PRN Administration Pain, Mild (Pain Scale 1-3) Albuterol Sulfate 2 puff 09/13/20 10:40 Albuterol Sulfate 90 Mcg 8 Gm Inhaler INHALE RQ4H PRN Wheezing Apixaban 5 mg 09/13/20 21:00 09/16/20 09:16 Apixaban 5 Mg Tablet PO 5 mg BID TIMBO Administration Atorvastatin Calcium 40 mg 09/14/20 09:00 09/16/20 09:16 Atorvastatin Calcium 40 Mg Tablet PO 40 mg DAILY TIMBO Administration Dexamethasone Sodium Phosphate 6 mg 09/13/20 10:45 09/16/20 09:16 Dexamethasone Sod Phosphate 4 Mg/Ml Vial IVPUSH 6 mg DAILY TIMBO Administration Ezetimibe 10 mg 09/14/20 09:00 09/16/20 09:16 Ezetimibe 10 Mg Tablet PO 10 mg DAILY TIMBO Administration Furosemide 20 mg 09/14/20 09:00 09/16/20 09:16 Furosemide 20 Mg Tablet PO 20 mg DAILY TIMBO Administration Protocol Leflunomide 20 mg 09/14/20 09:00 09/16/20 09:15 Leflunomide 10 Mg Tablet PO 20 mg DAILY TIMBO Administration Melatonin 21 mg 09/14/20 21:00 09/15/20 21:40 Melatonin 3 Mg Tablet PO 21 mg BEDTIME TIMBO Administration Metoprolol Succinate 25 mg 09/14/20 09:00 09/16/20 09:16 Metoprolol Succinate Er 25 Mg Tab.Er.24h PO 25 mg DAILY TIMBO Administration Protocol Omeprazole 20 mg 09/14/20 09:00 09/16/20 09:15 Omeprazole 20 Mg Capsule.Dr PO 20 mg DAILY TIMBO Administration Ondansetron HCl 4 mg 09/13/20 10:25 Ondansetron Hcl 4 Mg/2 Ml Vial IVPUSH Q8H PRN Nausea and Vomiting Oxycodone HCl 5 mg 09/15/20 10:14 09/16/20 09:35 Oxycodone Hcl Immed Release 5 Mg Tablet PO 5 mg Q6H PRN Administration Headache Sertraline HCl 50 mg 09/14/20 09:00 09/16/20 09:15 Sertraline Hcl 50 Mg Tablet PO 50 mg DAILY TIMBO Administration Sodium Chloride 3 ml 09/13/20 16:00 09/16/20 09:15 0.9 % Sodium Chloride Flush 3 Ml Syringe IVFLUSH 3 ml QSHIFT TIMBO Administration Labs CBC & Chem 7: 09/16/20 05:34 09/16/20 05:34 Labs: Laboratory Results - last 24 hr 09/16/20 09/16/20 09/16/20 05:34 05:34 05:34 WBC 9.0 RBC 4.48 Hgb 13.0 Hct 40.4 MCV 90.2 MCH 29.0 MCHC 32.2 RDW 14.3 Plt Count 196 MPV 12.8 H Immature Gran % (Auto) 0.6 H Neut % (Auto) 60.5 Lymph % (Auto) 25.6 [place] % (Auto) 13.0 H Eos % (Auto) 0.1 Baso % (Auto) 0.2 Lymph # (Auto) 2.3 [place] # (Auto) 1.2 Eos # (Auto) 0.0 Baso # (Auto) 0.0 Abs Immat Gran (auto) 0.05 H Absolute Neuts (auto) 5.5 Absolute Nucleated RBC 0.000 Nucleated RBC % (auto) 0.0 D-Dimer 261 Sodium 143 Potassium 4.7 Chloride 106 Carbon Dioxide 27 Anion Gap 15 BUN 24 H Creatinine 0.79 Estim Creat Clear Calc 70.6 Estimated GFR > 60 Random Glucose 103 Calcium 8.4 Ferritin 424 H Total Bilirubin 0.7 AST 25 ALT 21 Alkaline Phosphatase 51 Lactate Dehydrogenase 311 H C-Reactive Protein 1.16 H Total Protein 5.8 L Albumin 3.3 L Procalcitonin 09/16/20 05:34 WBC RBC Hgb Hct MCV MCH MCHC RDW Plt Count MPV Immature Gran % (Auto) Neut % (Auto) Lymph % (Auto) [place] % (Auto) Eos % (Auto) Baso % (Auto) Lymph # (Auto) [place] # (Auto) Eos # (Auto) Baso # (Auto) Abs Immat Gran (auto) Absolute Neuts (auto) Absolute Nucleated RBC Nucleated RBC % (auto) D-Dimer Sodium Potassium Chloride Carbon Dioxide Anion Gap BUN Creatinine Estim Creat Clear Calc Estimated GFR Random Glucose Calcium Ferritin Total Bilirubin AST ALT Alkaline Phosphatase Lactate Dehydrogenase C-Reactive Protein Total Protein Albumin Procalcitonin 0.03 Microbiology Microbiology Results: Microbiology 09/13/20 09:56 Blood - Venous Blood Culture - Preliminary No growth after 48 hours. 09/13/20 09:17 Blood - Venous Blood Culture - Preliminary No growth after 48 hours. Assessment and Plan (1) COVID-19 virus infection: Status: Acute (2) Pneumonia: Status: Acute (3) Hypoxia: Status: Acute Assessment and Plan: hospital d#4 74yo with AF, HTN, RA diagnosed with COVID-19 infection 09/04/20, onset of symptoms 09/03/20 admitted for hypoxia # COVID-19 pneumonia - dexamethasone d#12/18 - d/c doxycycline; no evidence of bacterial infection # acute hypoxic respiratory failure - wean O2 as tolerated, encouraged awake proning # AF - continue apixaban, metoprolol # HTN - continue metoprolol, furosemide # HLD - continue statin + ezetimibe # RA - continue lefluonmide # GERD - continue PPI # depression - continue sertraline # VTE ppx - on apixaban
[2020-09-16] MEDS: Melatonin 3 MG TABLET 21 MG PO (22:24)
[2020-09-17] MEDS: 0.9 % Sodium Chloride Flush 3 ML SYRINGE IVFLUSH ×4 (00:26→21:06)
[2020-09-17] MEDS: Acetaminophen 325 MG TABLET 650 MG PO ×3 (00:32→16:31)
[2020-09-17] MEDS: oxyCODONE HCl Immed Release 5 MG TABLET PO ×3 (00:36→16:28)
[2020-09-17 03:22] VITALS: BP 148/83; PULSE 72; RESP 18; TEMP 36.1; O2SAT 94
[2020-09-17 08:00] VITALS: BP 128/74; PULSE 92; RESP 18; TEMP 36.7; O2SAT 96
[2020-09-17] MEDS: Leflunomide 10 MG TABLET 20 MG PO (10:49)
[2020-09-17] MEDS: Apixaban 5 MG TABLET PO ×2 (10:49→21:06)
[2020-09-17] MEDS: dexAMETHasone sod phosphate 4 MG/ML VIAL 6 MG IVPUSH (10:49)
[2020-09-17] MEDS: Ezetimibe 10 MG TABLET PO (10:49)
[2020-09-17] MEDS: Sertraline HCL 50 MG TABLET PO (10:49)
[2020-09-17] MEDS: Metoprolol Succinate ER 25 MG TAB.ER.24H PO (10:50)
[2020-09-17] MEDS: Atorvastatin Calcium 40 MG TABLET PO (10:50)
[2020-09-17] MEDS: Furosemide 20 MG TABLET PO (10:50)
[2020-09-17] MEDS: Omeprazole 20 MG CAPSULE.DR PO (10:50)
[2020-09-17 12:00] VITALS: BP 132/64; PULSE 91; RESP 18; TEMP 36.4; O2SAT 92
--- NOTE | 2020-09-17 12:31 | HO.PM.IMPN ---
Subjective Subjective Date of Service: 09/17/20 Interval History: frontal SANTANA relieved by oxycodone dyspnea improved still on 2L NC Physical Exam Vital Signs: Vital Signs: Last Vital Signs Temp 98.1 F 09/17/20 08:00 Pulse 92 09/17/20 08:00 Resp 18 09/17/20 08:00 BP 128/74 09/17/20 08:00 Pulse Ox 96 09/17/20 08:00 Body Mass Index 29.9 Gen: in no acute distress HEENT: sclera anicteric, moist mucus membranes Neck: supple Lungs: no respiratory distress, auscultation deferred due to COVID-19 Heart: normal peripheral pulses Abd: soft, non-tender, non-distended Ext: no cyanosis, clubbing, or edema Skin: warm/well-perfused Neuro: alert and oriented x3, no focal findings Psych: appropriate affect Objective Data Current Medications Generic Name Dose Route Start Last Admin Trade Name Freq PRN Reason Stop Dose Admin Acetaminophen 650 mg 09/13/20 10:25 09/17/20 10:51 Acetaminophen 325 Mg Tablet PO 650 mg Q6H PRN Administration Pain, Mild (Pain Scale 1-3) Albuterol Sulfate 2 puff 09/13/20 10:40 Albuterol Sulfate 90 Mcg 8 Gm Inhaler INHALE RQ4H PRN Wheezing Apixaban 5 mg 09/13/20 21:00 09/17/20 10:49 Apixaban 5 Mg Tablet PO 5 mg BID TIMBO Administration Atorvastatin Calcium 40 mg 09/14/20 09:00 09/17/20 10:50 Atorvastatin Calcium 40 Mg Tablet PO 40 mg DAILY TIMBO Administration Dexamethasone Sodium Phosphate 6 mg 09/13/20 10:45 09/17/20 10:49 Dexamethasone Sod Phosphate 4 Mg/Ml Vial IVPUSH 6 mg DAILY TIMBO Administration Ezetimibe 10 mg 09/14/20 09:00 09/17/20 10:49 Ezetimibe 10 Mg Tablet PO 10 mg DAILY TIMBO Administration Furosemide 20 mg 09/14/20 09:00 09/17/20 10:50 Furosemide 20 Mg Tablet PO 20 mg DAILY TIMBO Administration Protocol Leflunomide 20 mg 09/14/20 09:00 09/17/20 10:49 Leflunomide 10 Mg Tablet PO 20 mg DAILY TIMBO Administration Melatonin 21 mg 09/14/20 21:00 09/16/20 22:24 Melatonin 3 Mg Tablet PO 21 mg BEDTIME TIMBO Administration Metoprolol Succinate 25 mg 09/14/20 09:00 09/17/20 10:50 Metoprolol Succinate Er 25 Mg Tab.Er.24h PO 25 mg DAILY TIMBO Administration Protocol Omeprazole 20 mg 09/14/20 09:00 09/17/20 10:50 Omeprazole 20 Mg Capsule.Dr PO 20 mg DAILY TIMBO Administration Ondansetron HCl 4 mg 09/13/20 10:25 Ondansetron Hcl 4 Mg/2 Ml Vial IVPUSH Q8H PRN Nausea and Vomiting Oxycodone HCl 5 mg 09/16/20 13:36 09/17/20 10:56 Oxycodone Hcl Immed Release 5 Mg Tablet PO 5 mg Q4H PRN Administration Headache Sertraline HCl 50 mg 09/14/20 09:00 09/17/20 10:49 Sertraline Hcl 50 Mg Tablet PO 50 mg DAILY TIMBO Administration Sodium Chloride 3 ml 09/13/20 16:00 09/17/20 10:51 0.9 % Sodium Chloride Flush 3 Ml Syringe IVFLUSH 3 ml QSHIFT TIMBO Administration Labs CBC & Chem 7: 09/16/20 05:34 09/16/20 05:34 Microbiology Microbiology Results: Microbiology 09/13/20 09:56 Blood - Venous Blood Culture - Preliminary No growth after 48 hours. 09/13/20 09:17 Blood - Venous Blood Culture - Preliminary No growth after 48 hours. Assessment and Plan (1) COVID-19 virus infection: Status: Acute (2) Pneumonia: Status: Acute (3) Hypoxia: Status: Acute Assessment and Plan: hospital d#5 74yo with AF, HTN, RA diagnosed with COVID-19 infection 09/04/20, onset of symptoms 09/03/20 admitted for hypoxia # COVID-19 pneumonia - dexamethasone d#01/17 - d/c'ed doxycycline; no evidence of bacterial infection # acute hypoxic respiratory failure - wean O2 as tolerated, encouraged awake proning # AF - continue apixaban, metoprolol # HTN - continue metoprolol, furosemide # HLD - continue statin + ezetimibe # RA - continue lefluonmide # GERD - continue PPI # depression - continue sertraline # VTE ppx - on apixaban # dispo - home with VNA when hypoxia resolves
--- NOTE | 2020-09-17 13:05 | MHC.CM.PN ---
Patient is COVID + and continues to need 2 liters O2. Discharge plan is home no services. CM will continue to follow patient for discharge needs.
[2020-09-17 14:19] VITALS: PULSE 68; PULSE 74; PULSE 77; O2SAT 87; O2SAT 90; O2SAT 93
[2020-09-17 15:46] VITALS: BP 137/74; PULSE 69; RESP 18; TEMP 37.2; O2SAT 93
[2020-09-17 19:25] VITALS: BP 152/75; PULSE 63; RESP 18; TEMP 36.5; O2SAT 93
[2020-09-17] MEDS: Melatonin 3 MG TABLET 21 MG PO (21:06)
[2020-09-18] VITALS (7 sets, daily range): BP systolic 117–146; BP diastolic 66–84; PULSE 62–89; RESP 18–20; TEMP 36.2–37.2; O2SAT 92–100
[2020-09-18 06:56] LABS: Hemoglobin 13.9 g/dl (12.0-16.0); Mean Corpuscular HGB Conc 32.3 g/dl (31.0-35.0); Mean Corpuscular Hemoglobin 28.5 pg (27.0-33.0); Mean Corpuscular Volume 88.1 fL (80-98); Mean Platelet Volume 12.6 fL (9.4-12.3); Platelet Count 250 X10*3/uL (160-400); Red Blood Count 4.88 X10*6/uL (4.20-5.50); Red Cell Distribution Width 13.9 % (11.0-16.0); White Blood Count 10.2 X10*3/uL (4.8-10.8)
[2020-09-18 07:17] LABS: Alanine Aminotransferase 23 U/L (0-31); Albumin Level 3.5 g/dL (3.5-5.0); Alkaline Phosphatase 63 U/L (39-117); Anion Gap 13 (12-20); Aspartate Amino Transferase 24 U/L (5-31); Bilirubin Total 0.6 mg/dL (0.0-1.0); Blood Urea Nitrogen 28 mg/dL (9-16); C Reactive Protein 0.45 mg/dL (< or = 0.50); Calcium 8.4 mg/dL (8.4-10.2); Carbon Dioxide 30 mmol/L (22-29); Chloride 101 mmol/L (96-108); Creatinine Clr Calc Pharmacy 72.4; Estimated Glomerular Filt Rate > 60; Glucose Random 116 mg/dL (60-115); Potassium 4.9 mmol/l (3.3-5.1); Sodium 139 mmol/L (135-145); Total Protein 6.1 g/dL (6.5-8.0)
[2020-09-18 07:21] LABS: D Dimer 377 NG/ML
[2020-09-18 07:26] LABS: Lactate Dehydrogenase 316 U/L (122-220)
[2020-09-18 07:36] LABS: Ferritin 417 ng/mL (10-250)
[2020-09-18 08:09] LABS: Procalcitonin 0.02 ng/mL
[2020-09-18 09:45] LABS: Atypical Lymph Absolute Manual 0.7 x10*3/uL; Atypical Lymphs Percent Manual 7 % (0-6); Band Neutrophils Percent 0 % (3-5); Lymphocytes Absolute Manual 2.2 X10*3/uL (0.6-4.8); Lymphocytes Percent Manual 22 % (20-40); Monocytes Absolute Manual 1.3 X10*3/uL (0.0-1.2); Monocytes Percent Manual 13 % (2-11); Neutrophils Absolute Manual 5.9 X10*3/uL (2.2-7.9); Neutrophils Percent Manual 58 % (45-73); Ovalocytes 1+; RBC Morphology NOTED
[2020-09-18 09:46] LABS: Large Platelet PRESENT; Platelet Estimate NORMAL (NORMAL); Platelet Morphology Comment NORMAL
[2020-09-18] MEDS: 0.9 % Sodium Chloride Flush 3 ML SYRINGE IVFLUSH ×3 (10:02→20:07)
[2020-09-18] MEDS: dexAMETHasone sod phosphate 4 MG/ML VIAL 6 MG IVPUSH (10:02)
[2020-09-18] MEDS: Sertraline HCL 50 MG TABLET PO (10:03)
[2020-09-18] MEDS: Metoprolol Succinate ER 25 MG TAB.ER.24H PO (10:03)
[2020-09-18] MEDS: Atorvastatin Calcium 40 MG TABLET PO (10:04)
[2020-09-18] MEDS: Furosemide 20 MG TABLET PO (10:04)
[2020-09-18] MEDS: Ezetimibe 10 MG TABLET PO (10:04)
[2020-09-18] MEDS: Apixaban 5 MG TABLET PO ×2 (10:04→20:06)
[2020-09-18] MEDS: Leflunomide 10 MG TABLET 20 MG PO (10:04)
[2020-09-18] MEDS: Omeprazole 20 MG CAPSULE.DR PO (10:04)
--- NOTE | 2020-09-18 12:19 | P.PNIM_ITS ---
Subjective Subjective Date of Service: 09/18/20 Interval History: mild frontal SANTANA but overall improving still requires 2L O2 via NC Physical Exam Vital Signs: Vital Signs: Last Vital Signs Temp 98.6 F 09/18/20 08:00 Pulse 89 09/18/20 10:03 Resp 20 09/18/20 08:00 BP 144/81 H 09/18/20 10:03 Pulse Ox 92 09/18/20 08:00 Body Mass Index 29.9 Gen: in no acute distress HEENT: sclera anicteric, moist mucus membranes Neck: supple Lungs: no respiratory distress, auscultation deferred due to COVID-19 Heart: normal peripheral pulses Abd: soft, non-tender, non-distended Ext: no cyanosis, clubbing, or edema Skin: warm/well-perfused Neuro: alert and oriented x3, no focal findings Psych: appropriate affect Objective Data Current Medications Generic Name Dose Route Start Last Admin Trade Name Freq PRN Reason Stop Dose Admin Acetaminophen 650 mg 09/13/20 10:25 09/17/20 16:31 Acetaminophen 325 Mg Tablet PO 650 mg Q6H PRN Administration Pain, Mild (Pain Scale 1-3) Albuterol Sulfate 2 puff 09/13/20 10:40 Albuterol Sulfate 90 Mcg 8 Gm Inhaler INHALE RQ4H PRN Wheezing Apixaban 5 mg 09/13/20 21:00 09/18/20 10:04 Apixaban 5 Mg Tablet PO 5 mg BID TIMBO Administration Atorvastatin Calcium 40 mg 09/14/20 09:00 09/18/20 10:04 Atorvastatin Calcium 40 Mg Tablet PO 40 mg DAILY TIMBO Administration Dexamethasone Sodium Phosphate 6 mg 09/13/20 10:45 09/18/20 10:02 Dexamethasone Sod Phosphate 4 Mg/Ml Vial IVPUSH 6 mg DAILY TIMBO Administration Ezetimibe 10 mg 09/14/20 09:00 09/18/20 10:04 Ezetimibe 10 Mg Tablet PO 10 mg DAILY TIMBO Administration Furosemide 20 mg 09/14/20 09:00 09/18/20 10:04 Furosemide 20 Mg Tablet PO 20 mg DAILY TIMBO Administration Protocol Leflunomide 20 mg 09/14/20 09:00 09/18/20 10:04 Leflunomide 10 Mg Tablet PO 20 mg DAILY TIMBO Administration Melatonin 21 mg 09/14/20 21:00 09/17/20 21:06 Melatonin 3 Mg Tablet PO 21 mg BEDTIME TIMBO Administration Metoprolol Succinate 25 mg 09/14/20 09:00 09/18/20 10:03 Metoprolol Succinate Er 25 Mg Tab.Er.24h PO 25 mg DAILY TIMBO Administration Protocol Omeprazole 20 mg 09/14/20 09:00 09/18/20 10:04 Omeprazole 20 Mg Capsule.Dr PO 20 mg DAILY TIMBO Administration Ondansetron HCl 4 mg 09/13/20 10:25 Ondansetron Hcl 4 Mg/2 Ml Vial IVPUSH Q8H PRN Nausea and Vomiting Oxycodone HCl 5 mg 09/16/20 13:36 09/17/20 16:28 Oxycodone Hcl Immed Release 5 Mg Tablet PO 5 mg Q4H PRN Administration Headache Sertraline HCl 50 mg 09/14/20 09:00 09/18/20 10:03 Sertraline Hcl 50 Mg Tablet PO 50 mg DAILY TIMBO Administration Sodium Chloride 3 ml 09/13/20 16:00 09/18/20 10:02 0.9 % Sodium Chloride Flush 3 Ml Syringe IVFLUSH 3 ml QSHIFT TIMBO Administration Labs CBC & Chem 7: 09/18/20 05:34 09/18/20 05:34 Labs: Laboratory Results - last 24 hr 09/18/20 09/18/20 09/18/20 05:34 05:34 05:34 WBC 10.2 RBC 4.88 Hgb 13.9 Hct 43.0 MCV 88.1 MCH 28.5 MCHC 32.3 RDW 13.9 Plt Count 250 D MPV 12.6 H Immature Gran % (Auto) Cancelled Neut % (Auto) Cancelled Lymph % (Auto) Cancelled [place] % (Auto) Cancelled Eos % (Auto) Cancelled Baso % (Auto) Cancelled Lymph # (Auto) Cancelled [place] # (Auto) Cancelled Eos # (Auto) Cancelled Baso # (Auto) Cancelled Abs Immat Gran (auto) Cancelled Absolute Neuts (auto) Cancelled Absolute Nucleated RBC 0.000 Nucleated RBC % (auto) 0.0 Neutrophils % (Manual) 58 Band Neutrophils % 0 L Lymphocytes % (Manual) 22 Atypical Lymphs % (Man) 7 H Monocytes % (Manual) 13 H Abs Neuts (Manual) 5.9 Lymphocytes # (Manual) 2.2 Atyp Lymphs # (Manual) 0.7 Monocytes # (Manual) 1.3 H Platelet Estimate NORMAL Large Platelets PRESENT Plt Morphology Comment NORMAL RBC Morphology NOTED Ovalocytes 1+ D-Dimer 377 Sodium 139 Potassium 4.9 Chloride 101 Carbon Dioxide 30 H Anion Gap 13 BUN 28 H Creatinine 0.77 Estim Creat Clear Calc 72.4 Estimated GFR > 60 Random Glucose 116 H Calcium 8.4 Ferritin 417 H Total Bilirubin 0.6 AST 24 ALT 23 Alkaline Phosphatase 63 D Lactate Dehydrogenase 316 H C-Reactive Protein 0.45 Total Protein 6.1 L Albumin 3.5 Procalcitonin 09/18/20 05:34 WBC RBC Hgb Hct MCV MCH MCHC RDW Plt Count MPV Immature Gran % (Auto) Neut % (Auto) Lymph % (Auto) [place] % (Auto) Eos % (Auto) Baso % (Auto) Lymph # (Auto) [place] # (Auto) Eos # (Auto) Baso # (Auto) Abs Immat Gran (auto) Absolute Neuts (auto) Absolute Nucleated RBC Nucleated RBC % (auto) Neutrophils % (Manual) Band Neutrophils % Lymphocytes % (Manual) Atypical Lymphs % (Man) Monocytes % (Manual) Abs Neuts (Manual) Lymphocytes # (Manual) Atyp Lymphs # (Manual) Monocytes # (Manual) Platelet Estimate Large Platelets Plt Morphology Comment RBC Morphology Ovalocytes D-Dimer Sodium Potassium Chloride Carbon Dioxide Anion Gap BUN Creatinine Estim Creat Clear Calc Estimated GFR Random Glucose Calcium Ferritin Total Bilirubin AST ALT Alkaline Phosphatase Lactate Dehydrogenase C-Reactive Protein Total Protein Albumin Procalcitonin 0.02 Microbiology Microbiology Results: Microbiology 09/13/20 09:56 Blood - Venous Blood Culture - Final No growth after 5 days. 09/13/20 09:17 Blood - Venous Blood Culture - Final No growth after 5 days. Assessment and Plan (1) COVID-19 virus infection: Status: Acute (2) Pneumonia: Status: Acute (3) Hypoxia: Status: Acute Assessment and Plan: hospital d#6 74yo with AF, HTN, RA diagnosed with COVID-19 infection 09/04/20, onset of symptoms 09/03/20 admitted for hypoxia # COVID-19 pneumonia - dexamethasone d#02/17 - d/c'ed doxycycline; no evidence of bacterial infection # acute hypoxic respiratory failure - wean O2 as tolerated, encouraged awake proning # AF - continue apixaban, metoprolol # HTN - continue metoprolol, furosemide # HLD - continue statin + ezetimibe # RA - continue lefluonmide # GERD - continue PPI # depression - continue sertraline # VTE ppx - on apixaban # dispo - home with VNA when hypoxia resolves
[2020-09-18] MEDS: oxyCODONE HCl Immed Release 5 MG TABLET PO ×2 (13:15→20:06)
[2020-09-18] MEDS: Acetaminophen 325 MG TABLET 650 MG PO ×2 (13:16→20:05)
[2020-09-18] MEDS: Melatonin 3 MG TABLET 21 MG PO (20:06)
[2020-09-19] VITALS (7 sets, daily range): BP systolic 108–134; BP diastolic 59–78; PULSE 60–78; RESP 16–20; TEMP 35.2–36.7; O2SAT 90–97
[2020-09-19] MEDS: 0.9 % Sodium Chloride Flush 3 ML SYRINGE IVFLUSH ×2 (09:00→20:05)
[2020-09-19] MEDS: dexAMETHasone sod phosphate 4 MG/ML VIAL 6 MG IVPUSH (09:00)
[2020-09-19] MEDS: Omeprazole 20 MG CAPSULE.DR PO (09:01)
[2020-09-19] MEDS: Ezetimibe 10 MG TABLET PO (09:01)
[2020-09-19] MEDS: Metoprolol Succinate ER 25 MG TAB.ER.24H PO (09:01)
[2020-09-19] MEDS: Leflunomide 10 MG TABLET 20 MG PO (09:01)
[2020-09-19] MEDS: Sertraline HCL 50 MG TABLET PO (09:01)
[2020-09-19] MEDS: Furosemide 20 MG TABLET PO (09:01)
[2020-09-19] MEDS: Apixaban 5 MG TABLET PO ×2 (09:02→20:00)
[2020-09-19] MEDS: Atorvastatin Calcium 40 MG TABLET PO (09:05)
[2020-09-19] MEDS: oxyCODONE HCl Immed Release 5 MG TABLET PO ×2 (09:25→20:00)
[2020-09-19] MEDS: Acetaminophen 325 MG TABLET 650 MG PO ×2 (09:25→19:59)
--- NOTE | 2020-09-19 10:51 | HO.PM.IMPN ---
Subjective Subjective Date of Service: 09/19/20 Interval History: SANTANA improved Dyspnea improved O2 weaned down to 1.5L via NC to maintain SaO2 93%+ No diarrhea Physical Exam Vital Signs: Vital Signs: Last Vital Signs Temp 98.1 F 09/19/20 07:48 Pulse 78 09/19/20 09:01 Resp 20 09/19/20 07:48 BP 123/78 09/19/20 09:01 Pulse Ox 95 09/19/20 07:48 Body Mass Index 29.9 Gen: in no acute distress HEENT: sclera anicteric, moist mucus membranes Neck: supple Lungs: no respiratory distress, auscultation deferred due to COVID-19 Heart: normal peripheral pulses Abd: soft, non-tender, non-distended Ext: no cyanosis, clubbing, or edema Skin: warm/well-perfused Neuro: alert and oriented x3, no focal findings Psych: appropriate affect Objective Data Current Medications Generic Name Dose Route Start Last Admin Trade Name Freq PRN Reason Stop Dose Admin Acetaminophen 650 mg 09/13/20 10:25 09/19/20 09:25 Acetaminophen 325 Mg Tablet PO 650 mg Q6H PRN Administration Pain, Mild (Pain Scale 1-3) Albuterol Sulfate 2 puff 09/13/20 10:40 Albuterol Sulfate 90 Mcg 8 Gm Inhaler INHALE RQ4H PRN Wheezing Apixaban 5 mg 09/13/20 21:00 09/19/20 09:02 Apixaban 5 Mg Tablet PO 5 mg BID TIMBO Administration Atorvastatin Calcium 40 mg 09/14/20 09:00 09/19/20 09:05 Atorvastatin Calcium 40 Mg Tablet PO 40 mg DAILY TIMBO Administration Dexamethasone Sodium Phosphate 6 mg 09/13/20 10:45 09/19/20 09:00 Dexamethasone Sod Phosphate 4 Mg/Ml Vial IVPUSH 6 mg DAILY TIMBO Administration Ezetimibe 10 mg 09/14/20 09:00 09/19/20 09:01 Ezetimibe 10 Mg Tablet PO 10 mg DAILY TIMBO Administration Furosemide 20 mg 09/14/20 09:00 09/19/20 09:01 Furosemide 20 Mg Tablet PO 20 mg DAILY TIMBO Administration Protocol Leflunomide 20 mg 09/14/20 09:00 09/19/20 09:01 Leflunomide 10 Mg Tablet PO 20 mg DAILY TIMBO Administration Melatonin 21 mg 09/14/20 21:00 09/18/20 20:06 Melatonin 3 Mg Tablet PO 21 mg BEDTIME TIMBO Administration Metoprolol Succinate 25 mg 09/14/20 09:00 09/19/20 09:01 Metoprolol Succinate Er 25 Mg Tab.Er.24h PO 25 mg DAILY TIMBO Administration Protocol Omeprazole 20 mg 09/14/20 09:00 09/19/20 09:01 Omeprazole 20 Mg Capsule.Dr PO 20 mg DAILY TIMBO Administration Ondansetron HCl 4 mg 09/13/20 10:25 Ondansetron Hcl 4 Mg/2 Ml Vial IVPUSH Q8H PRN Nausea and Vomiting Oxycodone HCl 5 mg 09/16/20 13:36 09/19/20 09:25 Oxycodone Hcl Immed Release 5 Mg Tablet PO 5 mg Q4H PRN Administration Headache Sertraline HCl 50 mg 09/14/20 09:00 09/19/20 09:01 Sertraline Hcl 50 Mg Tablet PO 50 mg DAILY TIMBO Administration Sodium Chloride 3 ml 09/13/20 16:00 09/19/20 09:00 0.9 % Sodium Chloride Flush 3 Ml Syringe IVFLUSH 3 ml QSHIFT TIMBO Administration Labs CBC & Chem 7: 09/18/20 05:34 09/18/20 05:34 Microbiology Microbiology Results: Microbiology 09/13/20 09:56 Blood - Venous Blood Culture - Final No growth after 5 days. 09/13/20 09:17 Blood - Venous Blood Culture - Final No growth after 5 days. Assessment and Plan (1) COVID-19 virus infection: Status: Acute (2) Pneumonia: Status: Acute (3) Hypoxia: Status: Acute Assessment and Plan: hospital d#7 74yo with AF, HTN, and RA diagnosed with COVID-19 infection 09/04/20, onset of symptoms 09/03/20 admitted for hypoxia on 09/13/19 (the 11th day of her illness) # COVID-19 pneumonia - dexamethasone d#03/19; out of window for remdesivir or convalescent plasma - d/c'ed doxycycline; no evidence of bacterial infection # acute hypoxic respiratory failure - wean O2 as tolerated, encouraged awake proning # AF - continue apixaban, metoprolol # HTN - continue metoprolol, furosemide # HLD - continue statin + ezetimibe # RA - continue lefluonmide # GERD - continue PPI # depression - continue sertraline # VTE ppx - on apixaban # dispo - home with VNA when hypoxia resolves, possibly in next 1-2d - updated pt's daughter by phone today
[2020-09-19] MEDS: Melatonin 3 MG TABLET 21 MG PO (19:58)
[2020-09-20] VITALS (9 sets, daily range): BP systolic 107–137; BP diastolic 60–81; PULSE 65–92; RESP 18–19; TEMP 35.9–37.1; O2SAT 90–97
[2020-09-20] MEDS: 0.9 % Sodium Chloride Flush 3 ML SYRINGE IVFLUSH ×2 (09:46→15:23)
[2020-09-20] MEDS: Leflunomide 10 MG TABLET 20 MG PO (09:46)
[2020-09-20] MEDS: Metoprolol Succinate ER 25 MG TAB.ER.24H PO (09:46)
[2020-09-20] MEDS: dexAMETHasone sod phosphate 4 MG/ML VIAL 6 MG IVPUSH (09:46)
[2020-09-20] MEDS: Atorvastatin Calcium 40 MG TABLET PO (09:47)
[2020-09-20] MEDS: Apixaban 5 MG TABLET PO ×2 (09:47→21:18)
[2020-09-20] MEDS: Ezetimibe 10 MG TABLET PO (09:47)
[2020-09-20] MEDS: Sertraline HCL 50 MG TABLET PO (09:47)
[2020-09-20] MEDS: Furosemide 20 MG TABLET PO (09:47)
[2020-09-20] MEDS: Omeprazole 20 MG CAPSULE.DR PO (09:47)
--- NOTE | 2020-09-20 14:12 | P.PNIM_ITS ---
Subjective Subjective Date of Service: 09/20/20 Interval History: seen and examined this AM feeling better, less JEFFERS each day reports being fatigued, explained to her that this may take some time to improve ROS General - no fevers or chills, +fatigue / +malaise Cardiovascular - no chest pain Respiratory - +JEFFERS Abdominal- no abdominal pain, nausea, vomiting, diarrhea Physical Exam Vital Signs: Vital Signs: Last Vital Signs Temp 97.6 F 09/20/20 11:22 Pulse 72 09/20/20 11:22 Resp 18 09/20/20 11:22 BP 124/72 09/20/20 11:22 Pulse Ox 92 09/20/20 11:22 Body Mass Index 29.9 Const: Other: General - no acute distress, appears comfortable Cardiovascular - regular rate and rhythm, S1-S2 Lungs - no distress Abdomen - soft, nontender, no rebound or guarding Extremities - no edema bilaterally Neuro - awake and alert, no focal deficits Objective Data Current Medications Generic Name Dose Route Start Last Admin Trade Name Freq PRN Reason Stop Dose Admin Acetaminophen 650 mg 09/13/20 10:25 09/19/20 19:59 Acetaminophen 325 Mg Tablet PO 650 mg Q6H PRN Administration Pain, Mild (Pain Scale 1-3) Albuterol Sulfate 2 puff 09/13/20 10:40 Albuterol Sulfate 90 Mcg 8 Gm Inhaler INHALE RQ4H PRN Wheezing Apixaban 5 mg 09/13/20 21:00 09/20/20 09:47 Apixaban 5 Mg Tablet PO 5 mg BID TIMBO Administration Atorvastatin Calcium 40 mg 09/14/20 09:00 09/20/20 09:47 Atorvastatin Calcium 40 Mg Tablet PO 40 mg DAILY TIMBO Administration Dexamethasone Sodium Phosphate 6 mg 09/13/20 10:45 09/20/20 09:46 Dexamethasone Sod Phosphate 4 Mg/Ml Vial IVPUSH 6 mg DAILY TIMBO Administration Ezetimibe 10 mg 09/14/20 09:00 09/20/20 09:47 Ezetimibe 10 Mg Tablet PO 10 mg DAILY TIMBO Administration Furosemide 20 mg 09/14/20 09:00 09/20/20 09:47 Furosemide 20 Mg Tablet PO 20 mg DAILY TIMBO Administration Protocol Leflunomide 20 mg 09/14/20 09:00 09/20/20 09:46 Leflunomide 10 Mg Tablet PO 20 mg DAILY TIMBO Administration Melatonin 21 mg 09/14/20 21:00 09/19/20 19:58 Melatonin 3 Mg Tablet PO 21 mg BEDTIME TIMBO Administration Metoprolol Succinate 25 mg 09/14/20 09:00 09/20/20 09:46 Metoprolol Succinate Er 25 Mg Tab.Er.24h PO 25 mg DAILY TIMBO Administration Protocol Omeprazole 20 mg 09/14/20 09:00 09/20/20 09:47 Omeprazole 20 Mg Capsule.Dr PO 20 mg DAILY TIMBO Administration Ondansetron HCl 4 mg 09/13/20 10:25 Ondansetron Hcl 4 Mg/2 Ml Vial IVPUSH Q8H PRN Nausea and Vomiting Oxycodone HCl 5 mg 09/16/20 13:36 09/19/20 20:00 Oxycodone Hcl Immed Release 5 Mg Tablet PO 5 mg Q4H PRN Administration Headache Sertraline HCl 50 mg 09/14/20 09:00 09/20/20 09:47 Sertraline Hcl 50 Mg Tablet PO 50 mg DAILY TIMBO Administration Sodium Chloride 3 ml 09/13/20 16:00 09/20/20 09:46 0.9 % Sodium Chloride Flush 3 Ml Syringe IVFLUSH 3 ml QSHIFT TIMBO Administration Labs CBC & Chem 7: 09/18/20 05:34 09/18/20 05:34 Microbiology Microbiology Results: Microbiology 09/13/20 09:56 Blood - Venous Blood Culture - Final No growth after 5 days. 09/13/20 09:17 Blood - Venous Blood Culture - Final No growth after 5 days. Assessment and Plan (1) COVID-19 virus infection: Status: Acute Assessment and Plan: 75 yo F admitted for COVID 19 causing acute resp failure with hypoxia. Tested po sitive 09/04/2020, symptoms 1-2 days prior to this. 1. ACute Resp. Failure with hypoxia due to COVID Saturation 90 on RA this AM observe and if desats, may need home o2 eval, particularly with exertion decadron day 04/19 out of window for plasma / remdesivir 2. AF eliquids / metoprolol 3. HTN metoprolol / lasix 4. HLD statin 5. GERD PPI 6. Depression Sertraline Dispo: possibly home services tomorrow
--- NOTE | 2020-09-20 15:13 | MHC.CM.PN ---
patient is on 2 liters O2 and IV Decadron. Discharge plan is home no services, will refer to [facility] if needs are home with O2. Family will provide transportation. CM will continue to follow patient for discharge needs.
[2020-09-20] MEDS: Melatonin 3 MG TABLET 21 MG PO (21:18)
[2020-09-20] MEDS: oxyCODONE HCl Immed Release 5 MG TABLET PO (21:18)
[2020-09-21] VITALS: BP 118/59; PULSE 70; RESP 15; TEMP 36.4; O2SAT 92
[2020-09-21] MEDS: 0.9 % Sodium Chloride Flush 3 ML SYRINGE IVFLUSH ×3 (01:14→16:36)
[2020-09-21 04:00] VITALS: BP 128/62; PULSE 68; RESP 16; TEMP 35.7; O2SAT 94
[2020-09-21 08:00] VITALS: BP 105/63; PULSE 81; RESP 14; TEMP 35.7; O2SAT 92
[2020-09-21] MEDS: dexAMETHasone sod phosphate 4 MG/ML VIAL 6 MG IVPUSH (09:10)
[2020-09-21] MEDS: Leflunomide 10 MG TABLET 20 MG PO (09:11)
[2020-09-21] MEDS: Furosemide 20 MG TABLET PO (09:11)
[2020-09-21] MEDS: Atorvastatin Calcium 40 MG TABLET PO (09:11)
[2020-09-21] MEDS: Omeprazole 20 MG CAPSULE.DR PO (09:11)
[2020-09-21] MEDS: Ezetimibe 10 MG TABLET PO (09:11)
[2020-09-21] MEDS: Apixaban 5 MG TABLET PO ×2 (09:11→20:00)
[2020-09-21] MEDS: Metoprolol Succinate ER 25 MG TAB.ER.24H PO (09:11)
[2020-09-21] MEDS: Sertraline HCL 50 MG TABLET PO (09:12)
[2020-09-21 11:46] VITALS: BP 104/61; PULSE 57; RESP 17; TEMP 36.4; O2SAT 93
--- NOTE | 2020-09-21 14:05 | HO.PM.IMPN ---
Subjective Subjective Date of Service: 09/21/20 Interval History: seen and examined this AM continues to improve and continues to hope she can go home without oxygen. detailed conversation day surrounding the potential need for o2. she is concerned that she will become dependant upon it ROS General - no fevers or chills, +fatigue / +malaise Cardiovascular - no chest pain Respiratory - +JEFFERS Abdominal- no abdominal pain, nausea, vomiting, diarrhea Physical Exam Vital Signs: Vital Signs: Last Vital Signs Temp 97.6 F 09/21/20 11:46 Pulse 57 09/21/20 11:46 Resp 17 09/21/20 11:46 BP 104/61 09/21/20 11:46 Pulse Ox 93 09/21/20 11:46 Body Mass Index 29.9 Const: Other: General - no acute distress, appears comfortable Cardiovascular - regular rate and rhythm, S1-S2 Lungs - no distress, good air entry bilaterally, dim at bases Abdomen - soft, nontender, no rebound or guarding Extremities - no edema bilaterally Neuro - awake and alert, no focal deficits Objective Data Current Medications Generic Name Dose Route Start Last Admin Trade Name Freq PRN Reason Stop Dose Admin Acetaminophen 650 mg 09/13/20 10:25 09/19/20 19:59 Acetaminophen 325 Mg Tablet PO 650 mg Q6H PRN Administration Pain, Mild (Pain Scale 1-3) Albuterol Sulfate 2 puff 09/13/20 10:40 Albuterol Sulfate 90 Mcg 8 Gm Inhaler INHALE RQ4H PRN Wheezing Apixaban 5 mg 09/13/20 21:00 09/21/20 09:11 Apixaban 5 Mg Tablet PO 5 mg BID TIMBO Administration Atorvastatin Calcium 40 mg 09/14/20 09:00 09/21/20 09:11 Atorvastatin Calcium 40 Mg Tablet PO 40 mg DAILY TIMBO Administration Dexamethasone Sodium Phosphate 6 mg 09/13/20 10:45 09/21/20 09:10 Dexamethasone Sod Phosphate 4 Mg/Ml Vial IVPUSH 09/22/20 09:01 6 mg DAILY TIMBO Administration Ezetimibe 10 mg 09/14/20 09:00 09/21/20 09:11 Ezetimibe 10 Mg Tablet PO 10 mg DAILY TIMBO Administration Furosemide 20 mg 09/14/20 09:00 09/21/20 09:11 Furosemide 20 Mg Tablet PO 20 mg DAILY TIMBO Administration Protocol Leflunomide 20 mg 09/14/20 09:00 09/21/20 09:11 Leflunomide 10 Mg Tablet PO 20 mg DAILY TIMBO Administration Melatonin 21 mg 09/14/20 21:00 09/20/20 21:18 Melatonin 3 Mg Tablet PO 21 mg BEDTIME TIMBO Administration Metoprolol Succinate 25 mg 09/14/20 09:00 09/21/20 09:11 Metoprolol Succinate Er 25 Mg Tab.Er.24h PO 25 mg DAILY TIMBO Administration Protocol Omeprazole 20 mg 09/14/20 09:00 09/21/20 09:11 Omeprazole 20 Mg Capsule.Dr PO 20 mg DAILY TIMBO Administration Ondansetron HCl 4 mg 09/13/20 10:25 Ondansetron Hcl 4 Mg/2 Ml Vial IVPUSH Q8H PRN Nausea and Vomiting Oxycodone HCl 5 mg 09/21/20 13:59 Oxycodone Hcl Immed Release 5 Mg Tablet PO Q4H PRN Headache Sertraline HCl 50 mg 09/14/20 09:00 09/21/20 09:12 Sertraline Hcl 50 Mg Tablet PO 50 mg DAILY TIMBO Administration Sodium Chloride 3 ml 09/13/20 16:00 09/21/20 09:11 0.9 % Sodium Chloride Flush 3 Ml Syringe IVFLUSH 3 ml QSHIFT TIMBO Administration Labs CBC & Chem 7: 09/18/20 05:34 09/18/20 05:34 Microbiology Microbiology Results: Microbiology 09/13/20 09:56 Blood - Venous Blood Culture - Final No growth after 5 days. 09/13/20 09:17 Blood - Venous Blood Culture - Final No growth after 5 days. Assessment and Plan (1) COVID-19 virus infection: Status: Acute Assessment and Plan: 75 yo F admitted for COVID 19 causing acute resp failure with hypoxia. Tested positive 09/04/2020, symptoms 1-2 days prior to this. 1. ACute Resp. Failure with hypoxia due to COVID placed on O2 1L by OR for saturation 90 on RA will continue with iv decadron today and if remains stable on 1L -- anticipate home with O2 tomorrow decadron day 9/10 out of window for plasma / remdesivir 2. AF eliquids / metoprolol 3. HTN metoprolol / lasix 4. HLD statin 5. GERD PPI 6. Depression Sertraline Dispo: possibly home services tomorrow
[2020-09-21 16:00] VITALS: BP 125/70; PULSE 67; RESP 17; TEMP 36.3; O2SAT 92
[2020-09-21 19:43] VITALS: BP 135/58; PULSE 67; RESP 18; TEMP 36.6; O2SAT 94
[2020-09-21] MEDS: Melatonin 3 MG TABLET 21 MG PO (20:00)
[2020-09-21] MEDS: oxyCODONE HCl Immed Release 5 MG TABLET PO (20:04)
[2020-09-22] VITALS: BP 126/73; PULSE 66; RESP 16; TEMP 36.5; O2SAT 96
[2020-09-22] MEDS: 0.9 % Sodium Chloride Flush 3 ML SYRINGE IVFLUSH ×2 (00:28→10:23)
[2020-09-22 04:00] VITALS: BP 124/60; PULSE 56; RESP 15; TEMP 36.6; O2SAT 96
--- NOTE | 2020-09-22 04:50 | MHC.PIE ---
P.2.5 SECOND [PAUSE I.PT ASYMPTOMATIC.PAUSE REPORTED TO .NO NEW ORDERS. E.CONT TO MONITOR
[2020-09-22 08:00] VITALS: BP 124/73; PULSE 63; RESP 16; TEMP 36.4; O2SAT 96
[2020-09-22] MEDS: dexAMETHasone sod phosphate 4 MG/ML VIAL 6 MG IVPUSH (10:22)
[2020-09-22] MEDS: Ezetimibe 10 MG TABLET PO (10:23)
[2020-09-22] MEDS: Metoprolol Succinate ER 25 MG TAB.ER.24H PO (10:24)
[2020-09-22] MEDS: Leflunomide 10 MG TABLET 20 MG PO (10:24)
[2020-09-22] MEDS: Apixaban 5 MG TABLET PO (10:24)
[2020-09-22] MEDS: Omeprazole 20 MG CAPSULE.DR PO (10:24)
[2020-09-22] MEDS: Sertraline HCL 50 MG TABLET PO (10:24)
[2020-09-22] MEDS: Furosemide 20 MG TABLET PO (10:24)
[2020-09-22] MEDS: Atorvastatin Calcium 40 MG TABLET PO (10:24)
[2020-09-22 11:53] VITALS: BP 120/66; PULSE 61; RESP 16; TEMP 36; O2SAT 94
[2020-09-22 12:59] VITALS: O2SAT 93
[2020-09-22 13:07] LABS: Pt Ventilation O2% ROOM AIR
[2020-09-22 13:12] LABS: ABG PCO2 40 mmHg (32-45); PO2 ABG 65 mmHg (83-108); pH ABG 7.46 (7.35-7.45)
[2020-09-22 13:13] LABS: Base Excess ABG 4.7; HCO3 ABG 28 mmol/L (22-26)
[2020-09-22 14:10] VITALS: PULSE 109; PULSE 90; O2SAT 88; O2SAT 93
--- NOTE | 2020-09-22 14:13 | P.DS_ITS ---
DS: Providers Provider Date of Service: 09/22/20 Date of admission: 09/13/20 10:25 Primary care physician: Peyman Vogt MD Consults: 09/13/20 10:25 Consult to Infectious Diseases Routine Consulting Provider: Mini Ayala Reason for consultation: covid 19, hypoxia Has provider been notified: No DS: Diagnosis Discharge Diagnosis (1) COVID-19 virus infection: Status: Acute (2) Acute respiratory failure with hypoxia: Status: Acute (3) Atrial fibrillation by electrocardiogram: Status: Acute DS: Medications Discharge Medications Home Medications: Home Medications Medication Instructions Recorded Confirmed Eliquis 1 tab PO BID 09/13/20 09/13/20 atorvastatin 1 tab PO DAILY 09/13/20 09/13/20 ezetimibe 1 tab PO DAILY 09/13/20 09/13/20 furosemide 1 tab PO DAILY 09/13/20 09/13/20 leflunomide 1 tab PO DAILY 09/13/20 09/13/20 metoprolol succinate 1 tab PO DAILY 09/13/20 09/13/20 omeprazole 1 cap PO DAILY 09/13/20 09/13/20 sertraline 1 tab PO DAILY 09/13/20 09/13/20 DS: Summary Hospital Course Hospital Course: Patient was started on supplemental oxygen and IV Decadron. She was deemed out of the window for remdesivir or convalescent plasma (infectious disease in agreement with this). She was empirically treated with a course of doxycycline. Patient completed 10 day course of IV Decadron in the hospital. Fortunately her oxygen was able to be weaned to room air at rest, however she did desaturate and qualify for home O2 at 2 liters/minute with exertion. She has been told to use oxygen as recommended and also has been told to maintain isolations per CDC guidelines. Time Spent with Patient Time attestation: Total time spent providing and/or coordinating discharge services: Discharge coordination time: Greater than 30 minutes Physical Exam Vital Signs: Vital Signs: Last Vital Signs Temp 96.8 F 09/22/20 11:53 Pulse 61 09/22/20 11:53 Resp 16 09/22/20 11:53 BP 120/66 09/22/20 11:53 Pulse Ox 94 09/22/20 11:53 Body Mass Index 29.9 Const: Other: General - no acute distress, appears comfortable Cardiovascular - regular rate and rhythm, S1-S2 Lungs - normal respiratory effort, clear to auscultation bilaterally, no wheezing Abdomen - soft, nontender, no rebound or guarding Extremities - no edema bilaterally Neuro - awake and alert, no focal deficits DS: Data Data Completed and Pending Labs on day of discharge: Laboratory Tests 09/13/20 09/13/20 09/13/20 07:44 07:44 07:44 WBC 6.6 RBC 4.69 Hgb 13.6 Hct 42.5 MCV 90.6 MCH 29.0 MCHC 32.0 RDW 14.2 Plt Count 144 L MPV 12.3 Immature Gran % (Auto) 0.3 Neut % (Auto) 64.8 Lymph % (Auto) 20.5 [place] % (Auto) 13.0 H Eos % (Auto) 1.1 Baso % (Auto) 0.3 Lymph # (Auto) 1.3 [place] # (Auto) 0.9 Eos # (Auto) 0.1 Baso # (Auto) 0.0 Abs Immat Gran (auto) 0.02 Absolute Neuts (auto) 4.3 Absolute Nucleated RBC 0.000 Nucleated RBC % (auto) 0.0 Neutrophils % (Manual) Band Neutrophils % Lymphocytes % (Manual) Atypical Lymphs % (Man) Monocytes % (Manual) Abs Neuts (Manual) Lymphocytes # (Manual) Atyp Lymphs # (Manual) Monocytes # (Manual) Platelet Estimate Large Platelets Plt Morphology Comment RBC Morphology Ovalocytes PT 20.4 H INR 1.7 H D-Dimer ABG pH ABG pCO2 ABG pO2 ABG HCO3 ABG O2 Saturation ABG Base Excess Oxygen Given Sodium 137 Potassium 3.7 Chloride 103 Carbon Dioxide 27 Anion Gap 11 L BUN 16 Creatinine 0.81 Estim Creat Clear Calc 68.9 Estimated GFR > 60 POC Glucose Random Glucose 113 Calcium 7.6 L Ferritin Total Bilirubin 0.7 AST 31 ALT 21 Alkaline Phosphatase 56 Lactate Dehydrogenase C-Reactive Protein Total Protein 5.9 L Albumin 3.6 Lipase Procalcitonin COVID-19 (JOSLYN) COVID-19 Clin Com 09/13/20 09/13/20 09/13/20 07:44 07:44 07:44 WBC RBC Hgb Hct MCV MCH MCHC RDW Plt Count MPV Immature Gran % (Auto) Neut % (Auto) Lymph % (Auto) [place] % (Auto) Eos % (Auto) Baso % (Auto) Lymph # (Auto) [place] # (Auto) Eos # (Auto) Baso # (Auto) Abs Immat Gran (auto) Absolute Neuts (auto) Absolute Nucleated RBC Nucleated RBC % (auto) Neutrophils % (Manual) Band Neutrophils % Lymphocytes % (Manual) Atypical Lymphs % (Man) Monocytes % (Manual) Abs Neuts (Manual) Lymphocytes # (Manual) Atyp Lymphs # (Manual) Monocytes # (Manual) Platelet Estimate Large Platelets Plt Morphology Comment RBC Morphology Ovalocytes PT INR D-Dimer ABG pH ABG pCO2 ABG pO2 ABG HCO3 ABG O2 Saturation ABG Base Excess Oxygen Given Sodium Potassium Chloride Carbon Dioxide Anion Gap BUN Creatinine Estim Creat Clear Calc Estimated GFR POC Glucose Random Glucose Calcium Ferritin 428 H Total Bilirubin AST ALT Alkaline Phosphatase Lactate Dehydrogenase 292 H C-Reactive Protein Total Protein Albumin Lipase 28 Procalcitonin 0.09 COVID-19 (JOSLYN) COVID-19 Clin Com 09/13/20 09/13/20 09/14/20 12:50 20:46 05:43 WBC 5.2 RBC 4.54 Hgb 12.9 Hct 40.9 MCV 90.1 MCH 28.4 MCHC 31.5 RDW 14.2 Plt Count 174 MPV 12.9 H Immature Gran % (Auto) 0.4 Neut % (Auto) 43.4 L Lymph % (Auto) 37.8 [place] % (Auto) 18.2 H Eos % (Auto) 0.0 Baso % (Auto) 0.2 Lymph # (Auto) 2.0 [place] # (Auto) 0.9 Eos # (Auto) 0.0 Baso # (Auto) 0.0 Abs Immat Gran (auto) 0.02 Absolute Neuts (auto) 2.2 Absolute Nucleated RBC 0.000 Nucleated RBC % (auto) 0.0 Neutrophils % (Manual) Band Neutrophils % Lymphocytes % (Manual) Atypical Lymphs % (Man) Monocytes % (Manual) Abs Neuts (Manual) Lymphocytes # (Manual) Atyp Lymphs # (Manual) Monocytes # (Manual) Platelet Estimate Large Platelets Plt Morphology Comment RBC Morphology Ovalocytes PT INR D-Dimer ABG pH ABG pCO2 ABG pO2 ABG HCO3 ABG O2 Saturation ABG Base Excess Oxygen Given Sodium Potassium Chloride Carbon Dioxide Anion Gap BUN Creatinine Estim Creat Clear Calc Estimated GFR POC Glucose 140 H Random Glucose Calcium Ferritin Total Bilirubin AST ALT Alkaline Phosphatase Lactate Dehydrogenase C-Reactive Protein Total Protein Albumin Lipase Procalcitonin COVID-19 (JOSLYN) Positive A COVID-19 Clin Com See Note 09/14/20 09/14/20 09/16/20 05:43 15:48 05:34 WBC 9.0 RBC 4.48 Hgb 13.0 Hct 40.4 MCV 90.2 MCH 29.0 MCHC 32.2 RDW 14.3 Plt Count 196 MPV 12.8 H Immature Gran % (Auto) 0.6 H Neut % (Auto) 60.5 Lymph % (Auto) 25.6 [place] % (Auto) 13.0 H Eos % (Auto) 0.1 Baso % (Auto) 0.2 Lymph # (Auto) 2.3 [place] # (Auto) 1.2 Eos # (Auto) 0.0 Baso # (Auto) 0.0 Abs Immat Gran (auto) 0.05 H Absolute Neuts (auto) 5.5 Absolute Nucleated RBC 0.000 Nucleated RBC % (auto) 0.0 Neutrophils % (Manual) Band Neutrophils % Lymphocytes % (Manual) Atypical Lymphs % (Man) Monocytes % (Manual) Abs Neuts (Manual) Lymphocytes # (Manual) Atyp Lymphs # (Manual) Monocytes # (Manual) Platelet Estimate Large Platelets Plt Morphology Comment RBC Morphology Ovalocytes PT INR D-Dimer ABG pH ABG pCO2 ABG pO2 ABG HCO3 ABG O2 Saturation ABG Base Excess Oxygen Given Sodium 141 Potassium 4.8 D Chloride 106 Carbon Dioxide 25 Anion Gap 15 BUN 16 Creatinine 0.79 Estim Creat Clear Calc 70.6 Estimated GFR > 60 POC Glucose 146 H Random Glucose 113 Calcium 8.1 L D Ferritin Total Bilirubin AST ALT Alkaline Phosphatase Lactate Dehydrogenase C-Reactive Protein Total Protein Albumin Lipase Procalcitonin COVID-19 (JOSLYN) COVID-19 Clin Com 09/16/20 09/16/20 09/16/20 05:34 05:34 05:34 WBC RBC Hgb Hct MCV MCH MCHC RDW Plt Count MPV Immature Gran % (Auto) Neut % (Auto) Lymph % (Auto) [place] % (Auto) Eos % (Auto) Baso % (Auto) Lymph # (Auto) [place] # (Auto) Eos # (Auto) Baso # (Auto) Abs Immat Gran (auto) Absolute Neuts (auto) Absolute Nucleated RBC Nucleated RBC % (auto) Neutrophils % (Manual) Band Neutrophils % Lymphocytes % (Manual) Atypical Lymphs % (Man) Monocytes % (Manual) Abs Neuts (Manual) Lymphocytes # (Manual) Atyp Lymphs # (Manual) Monocytes # (Manual) Platelet Estimate Large Platelets Plt Morphology Comment RBC Morphology Ovalocytes PT INR D-Dimer 261 ABG pH ABG pCO2 ABG pO2 ABG HCO3 ABG O2 Saturation ABG Base Excess Oxygen Given Sodium 143 Potassium 4.7 Chloride 106 Carbon Dioxide 27 Anion Gap 15 BUN 24 H Creatinine 0.79 Estim Creat Clear Calc 70.6 Estimated GFR > 60 POC Glucose Random Glucose 103 Calcium 8.4 Ferritin 424 H Total Bilirubin 0.7 AST 25 ALT 21 Alkaline Phosphatase 51 Lactate Dehydrogenase 311 H C-Reactive Protein 1.16 H Total Protein 5.8 L Albumin 3.3 L Lipase Procalcitonin 0.03 COVID-19 (JOSLYN) COVID-19 Clin Com 09/18/20 09/18/20 09/18/20 05:34 05:34 05:34 WBC 10.2 RBC 4.88 Hgb 13.9 Hct 43.0 MCV 88.1 MCH 28.5 MCHC 32.3 RDW 13.9 Plt Count 250 D MPV 12.6 H Immature Gran % (Auto) Cancelled Neut % (Auto) Cancelled Lymph % (Auto) Cancelled [place] % (Auto) Cancelled Eos % (Auto) Cancelled Baso % (Auto) Cancelled Lymph # (Auto) Cancelled [place] # (Auto) Cancelled Eos # (Auto) Cancelled Baso # (Auto) Cancelled Abs Immat Gran (auto) Cancelled Absolute Neuts (auto) Cancelled Absolute Nucleated RBC 0.000 Nucleated RBC % (auto) 0.0 Neutrophils % (Manual) 58 Band Neutrophils % 0 L Lymphocytes % (Manual) 22 Atypical Lymphs % (Man) 7 H Monocytes % (Manual) 13 H Abs Neuts (Manual) 5.9 Lymphocytes # (Manual) 2.2 Atyp Lymphs # (Manual) 0.7 Monocytes # (Manual) 1.3 H Platelet Estimate NORMAL Large Platelets PRESENT Plt Morphology Comment NORMAL RBC Morphology NOTED Ovalocytes 1+ PT INR D-Dimer 377 ABG pH ABG pCO2 ABG pO2 ABG HCO3 ABG O2 Saturation ABG Base Excess Oxygen Given Sodium 139 Potassium 4.9 Chloride 101 Carbon Dioxide 30 H Anion Gap 13 BUN 28 H Creatinine 0.77 Estim Creat Clear Calc 72.4 Estimated GFR > 60 POC Glucose Random Glucose 116 H Calcium 8.4 Ferritin 417 H Total Bilirubin 0.6 AST 24 ALT 23 Alkaline Phosphatase 63 D Lactate Dehydrogenase 316 H C-Reactive Protein 0.45 Total Protein 6.1 L Albumin 3.5 Lipase Procalcitonin COVID-19 (JOSLYN) COVID-19 Clin Com 09/18/20 09/22/20 05:34 13:00 WBC RBC Hgb Hct MCV MCH MCHC RDW Plt Count MPV Immature Gran % (Auto) Neut % (Auto) Lymph % (Auto) [place] % (Auto) Eos % (Auto) Baso % (Auto) Lymph # (Auto) [place] # (Auto) Eos # (Auto) Baso # (Auto) Abs Immat Gran (auto) Absolute Neuts (auto) Absolute Nucleated RBC Nucleated RBC % (auto) Neutrophils % (Manual) Band Neutrophils % Lymphocytes % (Manual) Atypical Lymphs % (Man) Monocytes % (Manual) Abs Neuts (Manual) Lymphocytes # (Manual) Atyp Lymphs # (Manual) Monocytes # (Manual) Platelet Estimate Large Platelets Plt Morphology Comment RBC Morphology Ovalocytes PT INR D-Dimer ABG pH 7.46 H ABG pCO2 40 ABG pO2 65 L ABG HCO3 28 H ABG O2 Saturation 91.0 ABG Base Excess 4.7 Oxygen Given ROOM AIR Sodium Potassium Chloride Carbon Dioxide Anion Gap BUN Creatinine Estim Creat Clear Calc Estimated GFR POC Glucose Random Glucose Calcium Ferritin Total Bilirubin AST ALT Alkaline Phosphatase Lactate Dehydrogenase C-Reactive Protein Total Protein Albumin Lipase Procalcitonin 0.02 COVID-19 (JOSLYN) COVID-19 Clin Com Discharge Plan Discharge Patient Disposition: Home Health Service Referrals: [facility] [Outside] Peyman Vogt MD [Primary Care Provider] - Discharge Medications: Continued atorvastatin 40 mg tablet 1 tab PO DAILY RF: 0 leflunomide 20 mg tablet 1 tab PO DAILY RF: 0 omeprazole 20 mg capsule,delayed release(DR/EC) 1 cap PO DAILY RF: 0 furosemide 20 mg tablet 1 tab PO DAILY RF: 0 metoprolol succinate 25 mg tablet extended release 24 hr 1 tab PO DAILY RF: 0 sertraline 50 mg tablet 1 tab PO DAILY RF: 0 ezetimibe 10 mg tablet 1 tab PO DAILY RF: 0 Eliquis 5 mg tablet 1 tab PO BID RF: 0 Discharge Orders: Discharge Order (Routine); Ordered 09/22/20 Ordered By: Brett Myrick Diet: advance to usual diet Activity on Discharge: As tolerated Visit Report Forms: Patient Portal Discharge page Care Plan Goals: To stay healthy and out of the hospital. Health Concerns: COVID 19 Plan of Treatment: You have completed dexamethasone treatment for covid 19 in the hospital Your oxygen levels drop when you exert youself. You should use oxygen as directed when exerting your self
--- NOTE | 2020-09-22 14:27 | MHC.CM.PN ---
Patient will be discharged home today new on O2. Patient will have [facility] for services. Family will provide transport.
--- NOTE | 2020-09-22 15:26 | W.MHC.F2F ---
Service Date Service Date: 09/22/20 Encounter Date of encounter: 09/22/20 Reasons for Services Reason for group home: other (monitoring respiratory status post covid) Reason for physical therapy: home safety and mobility Reason for occupational therapy: home safety and mobility Overseeing Care: Bjorn Rodgers Homebound: Leaving the home is medically contraindicated at this time without the asist of a device and/or another person due th the listed conditions above and below. Certification: Based on the above findings, I certify that this patient is confined to the home and needs intermittent group home care, physical therapy and/or speech therapy, or continues to need occupational therapy. The patient is under my care, and I have initiated the establishment of the plan of care. The patient will be followed by a physician who will periodically review the plan of care.
== END 2020-09-22 16:22 | disposition home health service (06) | DRG 177 ==
LOC: HO.ED 08:36 → HO.IMC 19:19
PROVIDERS: Family Medicine; Hospitalist; Nurse Practitioner Acute Care; Admitting Provider Family Medicine; Emergency Provider Emergency Medicine; PCP Internal Medicine; Visit Provider Family Medicine
DX: U07.1 COVID-19 (principal); J96.01 Acute respiratory failure with hypoxia; J12.82 Pneumonia due to coronavirus disease 2019; M06.9 Rheumatoid arthritis, unspecified; K21.9 Gastro-esophageal reflux disease without esophagitis; I48.91 Unspecified atrial fibrillation; F32.9 Major depressive disorder, single episode, unspecified; E78.5 Hyperlipidemia, unspecified; I10 Essential (primary) hypertension; Z79.01 Long term (current) use of anticoagulants; Z79.899 Other long term (current) drug therapy
CPT/HCPCS: 11104; 36415; 36600; 71045; 80048; 80053; 82728; 82803; 82947; 83615; 83690; 84145; 85007; 85025; 85027; 85379; 85610; 86140; 87040; 87635; 93005; 96361; 96365; 96366; 96367; 96375; 99285; J0696; J1100; J2270; J2405